=== PATIENT | male | born 1985 | race Caucasian/White ===

== ENCOUNTER → 2020-06-13 | Outpatient (BNVA) | payer SELFPAY | PROVIDERS: Visit Provider Internal Medicine ==

== ENCOUNTER 2021-04-17 12:34 | Outpatient (REF) | payer MEDICARE, MEDICAID, SELFPAY | END 2021-04-17 12:35 | disposition home or self-care (01) | LOC: HO.LNP 12:34 | PROVIDERS: Visit Provider Hospitalist | DX: Z20.822 Contact with and (suspected) exposure to COVID-19 (principal); J01.90 Acute sinusitis, unspecified | CPT/HCPCS: U0003; U0005 ==

== ENCOUNTER 2023-04-07 08:48 | Emergency (ER) | payer MEDICARE, MEDICAID, SELFPAY ==
[2023-04-07 08:52] VITALS: BP 142/96; PULSE 83; RESP 16; TEMP 36.1; O2SAT 98; BMI 32.1
--- NOTE | 2023-04-07 09:10 | ED.GENADULT ---
HPI - General Adult General Chief complaint: Allergic Reaction Stated complaint: allergic reaction Time Seen by Provider: 04/07/23 09:09 Source: patient Mode of arrival: ambulatory Limitations: no limitations History of Present Illness HPI narrative: Patient is a 37 year old assigned male at with no reported medical history presenting to the emergency department today with hives. Patient states that starting yesterday he began to break out in hives everywhere and intermittently felt a swelling sensation in his throat. Patient denies any known allergens. Patient states that he has been under an increased amount of stress. Patient denies any dizziness, lightheadedness, abdominal pain, nausea, vomiting, fever, chills, blurry vision, double vision, loss of vision, chest pain, difficulty breathing, shortness of breath, back pain, night sweats, pain with urination, increased urinary frequency, increased urinary urgency, blood in his urine or stool, syncope or a near syncopal episode, recent trauma or falls, bowel incontinence, bladder incontinence, bowel retention, bladder retention, or any other complaints at this time. Onset (ago): day(s) (2) Severity: mild Relieving factors: none Exacerbating factors: none Associated symptoms: rash Treatments prior to arrival: other (100mg Benadryl) Related Data Previous Rx's Medication Instructions Recorded amoxicillin 875 mg-potassium 1 tab PO BID #20 tabs 04/17/21 clavulanate 125 mg tablet (Augmentin) prednisone 20 mg tablet 20 mg PO .COMPLEX #18 tabs 04/17/21 prednisone 20 mg tablet 20 mg PO DAILY 7 days #7 tabs 04/07/23 Allergies Allergy/AdvReac Type Severity Reaction Status Date / Time No Known Allergies Allergy Unverified 05/08/20 15:40 Review of Systems Constitutional: Constitutional: Reports no additional constitutional complaints, Denies chills, Denies fever(s) and Denies night sweats Eyes: Eyes: Reports no additional eye complaints, Denies blurry vision, Denies change in vision, Denies diplopia, Denies eye discharge, Denies loss of vision and Denies eye pain ENT: Denies dizziness Cardiovascular: Cardiovascular: Reports no additional cardiovascular complaints, Denies chest pain, Denies lightheadedness, Denies Loss of Consciousness and Denies dyspnea Respiratory: Respiratory: Reports no additional respiratory complaints and Denies dyspnea Gastrointestinal: Gastrointestinal: Reports no additional gastrointestinal complaints, Denies abdominal pain, Denies melena, Denies hematochezia, Denies change in bowel habits and Denies change in stool character Genitourinary: Genitourinary: Reports no additional male genitourinary complaints, Denies hematuria, Denies oliguria, Denies difficulty urinating, Denies dysuria, Denies urinary frequency, Denies urinary hesitancy, Denies urinary incontinence and Denies urinary urgency Musculoskeletal: Musculoskeletal: Reports no additional musculoskeletal complaints, Denies numbness and Denies tingling Integumentary/Breasts: Skin/Breast: Reports rash Neurologic: Denies dizziness, Denies loss of vision, Denies numbness and Denies tingling Psychiatric: Psychiatric: Reports no additional psychiatric complaints Endocrine: Endocrine: Reports no additional endocrine complaints Hematologic/Lymphatic: Hematologic/Lymphatic: Reports no additional hematologic/lymphatic complaints Allergic/Immunologic: Allergic/Immunologic: Reports no additional allergic/immunologic complaints PMFSH Past Medical History Attestation statement: The following information was validated with the patient. Source: old records reviewed and nursing notes reviewed Medical History Acute sinusitis Social History Social History Advance Directives: No Physical Exam ED Vital Signs: Vital Signs - 24 hr 04/07/23 08:52 Temperature 97.0 F Pulse Rate 83 Respiratory Rate 16 Blood Pressure 142/96 H Pulse Oximetry 98 Oxygen Delivery Method Room Air BMI result Body Mass Index 32.1 Const General: cooperative, no acute distress, alert and awake Nutritional Appearance: well nourished Orientation/consciousness: patient oriented x3 Limitations: no limitations HENMT Head: Yes normal to inspection and Yes atraumatic Ears: hearing grossly normal bilaterally and external ears normal General nose exam: Normal external nose present, no nasal discharge noted and no epistaxis Face and sinus: Yes normal facial exam, No abrasion and No laceration Mouth: Normal oral and palatal mucosa present, no drooling and no muffled voice Eyes General: appearance normal, both eyes and all related structures Periorbital: periorbital findings normal Eyelids: Yes eyelids normal Conjunctivae: conjunctivae normal Pupils: Equal, round and reactive pupils present EOM: EOMs intact bilaterally Neck Neck: Yes normal visual inspection, Yes full ROM and Yes no lymphadenopathy Chest Chest palpation & inspection: normal inspection of the chest Resp Effort & Inspection: normal respiratory effort and able to speak in complete sentences GI Inspection: Yes normal to inspection Neuro General: patient oriented x3 and moves all extremities Cranial nerves: Yes Equal, round and reactive pupils present Cognition (Neuro): normal cognition Motor exam (neuro): 5/5 motor strength present throughout Sensory Exam: Normal double simultaneous stimulation for sensation Coordination: [id number] test normal Extrem Other: urticaria to bilateral upper and lower extremities General: Yes full ROM and Yes capillary refill normal Psych Appearance: grossly normal Mental Status: mental status grossly normal Affect: normal affect Attitude: cooperative Thought process: Normal thought process present Thought content: Normal thought content present Insight: Good insight present (Psych) Medications Administered Discontinued Medications Generic Name Dose Route Start Last Admin Trade Name Freq PRN Reason Stop Dose Admin Methylprednisolone Sodium Succinate 60 mg 04/07/23 09:30 04/07/23 09:50 Methylprednisolone Sod Succ 125 Mg/2 Ml Vial IM 04/07/23 09:31 60 mg ONCE ONE Administration Medical Decision Making Medical Decision Making [facility] Narrative: Patient is a 37 year old assigned male at with no reported medical history presenting to the emergency department today with hives. Patient's physical exam showed no swelling in the pharynx or posterior oropharynx. Hives were present to the bilateral upper and lower extremities. Patient's blood work was unremarkable. I explained my physical exam findings as well as all test results to the patient. I answered all questions asked by the patient. I stressed the importance of the patient taking his medication as prescribed. I stressed the importance of the patient following up with his primary care provider and an solar project engineer. I stressed the importance of the patient returning to the emergency department immediately if his symptoms were to worsen or if he were to develop any dizziness, shortness of breath, difficulty breathing, chest pain, blurry vision, loss of vision, nausea, vomiting, abdominal pain, fever, chills, back pain, or any other complaints. Patient verbalized agreement and understanding with this treatment plan and discharge. Differential Diagnosis Differential Diagnoses: The differential diagnosis associated with the presentation includes Allergic reaction Urticaria Lab Data [facility] Lab Attestation statement: I reviewed the patient's lab results. My interpretation of these studies and their corresponding values is that they are grossly normal. 04/07/23 09:51 04/07/23 09:51 Labs: Lab Results 04/07/23 04/07/23 Range/Units 09:51 09:51 WBC 6.2 (4.8-10.8) X10*3/uL RBC 5.33 (4.60-5.80) X10*6/uL Hgb 16.0 (14.0-18.0) g/dl Hct 46.0 (42.0-52.0) % MCV 86.3 (80.0-98.0) fL MCH 30.0 (27.0-33.0) pg MCHC 34.8 (31.0-36.0) g/dl RDW 12.3 (11.0-16.0) % Plt Count 266 (160-400) X10*3/uL MPV 9.6 (9.4-12.4) fL Immature Gran % (Auto) 0.3 (0.0-0.4) % Neut % (Auto) 63.3 (45-73) % Lymph % (Auto) 26.3 (20-40) % Geary % (Auto) 8.1 (2-11) % Eos % (Auto) 1.8 (0-4) % Baso % (Auto) 0.2 (0-2) % Lymph # (Auto) 1.6 (1.2-4.9) X10*3/uL Geary # (Auto) 0.5 (0.1-1.2) X10*3/uL Eos # (Auto) 0.1 (0.0-0.4) X10*3/uL Baso # (Auto) 0.0 (0.0-0.2) X10*3/uL Abs Immat Gran (auto) 0.02 (0.00-0.03) X10*3/uL Absolute Neuts (auto) 3.9 (2.0-8.3) x10*3/uL Absolute Nucleated RBC 0.000 (0.0-0.012) X10*3/uL Nucleated RBC % (auto) 0.0 (0.0-0.2) /100WBC Sodium 140 (135-145) mmol/L Potassium 4.0 (3.3-5.1) mmol/L Chloride 109 H (96-108) mmol/L Carbon Dioxide 22 (22-29) mmol/L Anion Gap 13 (12-20) BUN 12 (9-16) mg/dL Creatinine 0.98 (0.5-1.4) mg/dL Estim Creat Clear Calc 125.5 Estimated GFR > 60 Random Glucose 106 (60-115) mg/dL Calcium 10.0 (8.4-10.2) mg/dL Magnesium 2.0 (1.6-2.6) mg/dL Total Bilirubin 0.5 (0.0-1.0) mg/dL AST 22 (5-37) U/L ALT 25 (0-40) U/L Alkaline Phosphatase 83 (39-117) U/L Total Protein 7.5 (6.5-8.0) g/dL Albumin 4.4 (3.5-5.0) g/dL Discharge Plan Discharge Clinical Impression: Urticaria Patient Disposition: Home, Self-Care Instructions: Urticaria (ED) Additional Instructions: Follow up with your primary care provider and an solar project engineer. Return to the emergency department immediately if your symptoms worsen or if you develop any dizziness, shortness of breath, difficulty breathing, chest pain, blurry vision, loss of vision, nausea, vomiting, abdominal pain, fever, chills, back pain, or any other complaints. Prescriptions: New prednisone 20 mg tablet 20 mg PO DAILY 7 Days Qty: 7 0RF No Action prednisone 20 mg tablet 20 mg PO .COMPLEX Qty: 18 0RF Rx Instructions: 20 mg PO 3 p.o. daily for 3 days followed by 2 p.o. daily for 3 days followed by 1 p.o. daily for 3 days; amoxicillin-pot clavulanate [Augmentin] 875-125 mg tablet 1 tab PO BID Qty: 20 0RF Referrals: Velvet Bianchi MD [Primary Care Provider] - Lola Fernandez MD [Physician] - (Call to establish and follow up with an solar project engineer.) Stand Alone Forms: Work/School Release Interventions: ED Discharge Assessment Last Done: 04/07/23 11:12 Discharge Date/Time: 04/07/23 11:15 Print Language: Slovak
[2023-04-07] MEDS: methylPREDNISolone Sod Succ 125 MG/2 ML VIAL 60 MG IM (09:50)
[2023-04-07 09:57] LABS: MANUAL DIFF FLAG NO
[2023-04-07 09:59] LABS: Basophils Percent Auto 0.2 % (0-2); Eosinophils Absolute Auto 0.1 X10*3/uL (0.0-0.4); Eosinophils Percent Auto 1.8 % (0-4); Imm Gran Abs Auto 0.02 X10*3/uL (0.00-0.03); Imm Gran Pct Auto 0.3 % (0.0-0.4); Lymphocytes Absolute Auto 1.6 X10*3/uL (1.2-4.9); Lymphocytes Percent Auto 26.3 % (20-40); Mean Corpuscular HGB Conc 34.8 g/dl (31.0-36.0); Mean Corpuscular Volume 86.3 fL (80.0-98.0); Mean Platelet Volume 9.6 fL (9.4-12.4); Monocytes Absolute Auto 0.5 X10*3/uL (0.1-1.2); Monocytes Percent Auto 8.1 % (2-11); Neutrophils Absolute Auto 3.9 x10*3/uL (2.0-8.3); Neutrophils Percent Auto 63.3 % (45-73); Platelet Count 266 X10*3/uL (160-400); Red Blood Count 5.33 X10*6/uL (4.60-5.80); Red Cell Distribution Width 12.3 % (11.0-16.0); White Blood Count 6.2 X10*3/uL (4.8-10.8)
--- NOTE | 2023-04-07 10:09 | PC.NURSE ---
IM med given (L deltoid) as ordered. pt tolerated well. lab results pending
[2023-04-07 10:13] LABS: Alanine Aminotransferase 25 U/L (0-40); Albumin Level 4.4 g/dL (3.5-5.0); Alkaline Phosphatase 83 U/L (39-117); Anion Gap 13 (12-20); Aspartate Amino Transferase 22 U/L (5-37); Bilirubin Total 0.5 mg/dL (0.0-1.0); Blood Urea Nitrogen 12 mg/dL (9-16); Carbon Dioxide 22 mmol/L (22-29); Chloride 109 mmol/L (96-108); Creatinine Clr Calc Pharmacy 125.5; Estimated Glomerular Filt Rate > 60; Glucose Random 106 mg/dL (60-115); Sodium 140 mmol/L (135-145); Total Protein 7.5 g/dL (6.5-8.0)
--- NOTE | 2023-04-07 11:12 | PC.NURSE ---
pt cleared for discharge. discharge instructions reviewed with pt, denies trouble breathing. vss. no complaints.
[2023-04-09 01:33] LABS: A. Phagocytphilium DNA,RT-PCR NOT DETECTED (NOT DETECTED); Babesia Microti DNA, RT-PCR NOT DETECTED (NOT DETECTED); Borrelia Miyamotoi,DNA RT-PCR NOT DETECTED (NOT DETECTED); E.Chaffeensis DNA RT-PCR NOT DETECTED (NOT DETECTED); Lyme(Borrelia ssp)DNA RT-PCR NOT DETECTED (NOT DETECTED)
== END 2023-04-07 11:15 | disposition home or self-care (01) ==
PROVIDERS: Physician Assistant Medical; Emergency Provider Emergency Medicine; PCP Internal Medicine
DX: L50.9 Urticaria, unspecified (principal)
CPT/HCPCS: 36415; 80053; 83735; 85025; 87798; 87801; 96372; 99284; J2930

== ENCOUNTER 2023-04-08 09:18 | Outpatient (AMB) | payer MEDICARE, MEDICAID, SELFPAY ==
[2023-04-08 09:25] VITALS: BP 128/76; PULSE 74; TEMP 36.4; O2SAT 98; BMI 32.1
--- NOTE | 2023-04-08 09:25 | MHC.OFFWIV ---
Intake Vital Signs 04/08/23 09:25 Height 5 ft 10 in Weight 224 lb BMI 32.1 BP 128/76 Blood Pressure Location Rt brachial Position Sitting Pulse 74 Pulse Source Pulse Oximeter Temp 97.6 F Temp Source Temporal Artery Scan Pulse Oximetry (%) 98 Intake Visit Reasons: EP, Hives all over body Intake Note: pt is here for c/o hives all over body since tuesday Allergies No Known Allergies Allergy (Verified 04/08/23 10:00) Medication List - Last Reconciled 04/08/23 by Riley Pino MD alprazolam (Xanax) 0.25 mg PO DAILY prednisone 60 mg (3 x 20 mg) PO DAILY 3 days HPI EP, Hives all over body HPI Details 37-year-old male presents to the office for a sick visit. Patient is complaining of a rash all over the body for the past 2 days. He was seen in the emergency room yesterday for urticaria. Patient received an injection and prednisone. He took 1 pill of the prednisone and still is having symptoms. Patient is very anxious. [facility] Medical History Acute sinusitis Physical Exam Vital Signs: Last Vital Signs Temp 97.6 F 04/08/23 09:25 Pulse 74 04/08/23 09:25 BP 128/76 04/08/23 09:25 Pulse Ox 98 04/08/23 09:25 BMI result Body Mass Index 32.1 Const General: cooperative and healthy appearing Nutritional Appearance: well nourished Orientation/consciousness: patient oriented x3 Limitations: no limitations HEENT Head: Yes normal to inspection Eyes General: appearance normal, both eyes and all related structures Neck Neck: Yes normal visual inspection Chest Chest palpation & inspection: normal palpation of entire chest wall Resp Effort & Inspection: normal respiratory effort Skin Other: Erythematous rash all over the back, lower legs. Wheals and raised lesions present. Neuro General: patient oriented x3 Assessment & Plan Assessment & Plan (1) Urticaria: Code(s): L50.9 - Urticaria, unspecified Plan: Partly related to anxiety. A few anxiolytics prescribed. Prednisone dosage increased to 60 mg a day for three days. Medications: New alprazolam (Xanax) 0.25 mg PO DAILY 5 tabs 0RF Changed From prednisone 20 mg PO DAILY 7 days 7 tabs 0RF To prednisone 60 mg (3 x 20 mg) PO DAILY 3 days 9 tabs 0RF Coding Level of Care Code Est Pt Level 3 (55045) Diagnoses Urticaria L50.9
== END 2023-04-08 10:14 | disposition home or self-care (01) ==
PROVIDERS: Visit Provider Internal Medicine
DX: L50.9 Urticaria, unspecified (principal)
CPT/HCPCS: 99213

== ENCOUNTER 2023-10-10 14:28 | Outpatient (AMB) | payer MEDICARE, MEDICAID, SELFPAY ==
--- NOTE | 2023-10-10 14:34 | A.OFFPC_ITS ---
Vital Signs 10/10/23 14:36 Height 5 ft 10 in Weight 230 lb BMI 33.0 BP 128/76 Blood Pressure Location Lt brachial Position Sitting Pulse 82 Pulse Source Pulse Oximeter Pulse Oximetry (%) 98 Oxygen Delivery Method Room Air Intake Visit Reasons: [facility] est care Intake Note: pt is here for est establish care, patient states he has concerns about anxiety, and also his weight Rn Hemodialysis Charge Required: No Accompanied by: Self / Same As Patient Allergies No Known Allergies Allergy (Verified 10/10/23 17:47) Medication List - Last Reconciled 10/10/23 by MARCIE Stevenson No Known Home Meds Tobacco use date assessed: 10/10/23 Dental Screening Dental Screen Date: 10/10/23 Did you have a dental visit in the last 12 months?: Yes Did you have a dental problem in the last 6 months where you did not have access to dental care?: No Was dental information given to patient?: Patient has dentist HPI [facility] est care HPI Details New pt is here for a PE. Will order labs. Pt reports increased anxiety. He reports frequent anxiety attacks. He is interested in trying a medication for this. Will send buspirone 5mg bid, pt has my permission to increase to 10mg bid if needed. Denies any SI and HI. Pt reports several scattered lesions of his penis. ? skin tags vs HPV. Will refer to urology. [facility] Medical History (Updated 10/10/23 @ 15:07 by MARCIE Stevenson) Acute sinusitis Surgical History (Updated 10/10/23 @ 14:40 by Keagan Lacey CMA) No pertinent past surgical history Family History (Updated 10/10/23 @ 14:46 by Keagan Lacey CMA) Daughter Bipolar 1 disorder Schizophrenia Brother Bipolar 1 disorder Schizophrenia Father Diabetes Mother Anxiety Social History (Updated 10/10/23 @ 14:42 by Keagan Lacey CMA) Housing: House Alcohol intake: current Alcohol intake frequency: does not drink Patient Tobacco Use Status: Current everyday Tobacco user Cigarettes Per Day: 15 Years Smoked: 20 years e-Cigarette/Vaping Use: Never Used Substance Use Type: Marijuana service: No Current occupational status: unemployed Cognitive needs: No Hearing needs: No Vision needs: Yes Questionnaire PHQ-9 Over the last 2 weeks, how often have you been bothered by any of the following problems? 1. Little interest or pleasure in doing things: several days 2. Feeling down, depressed, or hopeless: several days 3. Trouble falling or staying asleep, or sleeping too much: not at all 4. Feeling tired or having little energy: more than half the days 5. Poor appetite or overeating: several days 6. Feeling bad about yourself - or that you are a failure or have let yourself or your family down: several days 7. Trouble concentrating on things, such as reading the newspaper or watching television: several days 8. Moving or speaking so slowly that other people could have noticed. Or the opposite - being so fidgety or restless that you have been moving around a lot more than usual: several days 9. Thoughts that you would be better off or of hurting yourself in some way: not at all Total score: 8 Depression Screening Interpretation: Negative Depression Screening Done: Yes 93885 - PHQ-9 Billing: Yes Source: Developed by Drs. Jake Soto, Margarette Joseph, Hardeep Marlow and colleagues, with an educational mike from [employer]. Thrive Questionnaire Date Thrive assessed: 10/10/23 I am a: Patient What is your living situation today?: I have a steady place to live Within the past 12 months, did the food you bought not last and you didn't have the money to get more?: Never true Within the past 12 months, did you worry whether your food would run out before you got money to buy more?: Never true Do you have trouble paying for medicines?: No Do you have trouble getting transportation to medical appointments?: No Do you have trouble paying your heating and electricity bill?: No Do you have trouble taking care of your child, family member or friend?: No Do you have trouble with day-to-day activities such as bathing, preparing meals, shopping, managing finances, etc.?: No Are you currently unemployed and looking for a job?: No Are you interested in more education?: No Please select the resources that you would like help with: None Currently or been in a relationship where the following occur: no concerns reported THRIVE Score: 0 AUDIT C Alcohol Use Questionnaire (AUDIT-C) 1. How often do you have a drink containing alcohol?: Never 3. How often do you have six or more drinks on one occasion?: Never Total Score: 0 Score Reviewed/Action Taken: Yes RICHMOND-7 AMB Questionnaire RICHMOND-7 Date RICHMOND - 7 assessed: 10/10/23 Feeling nervous, anxious, or on edge: 3 = Nearly every day Not being able to stop or control worryin = Nearly every day Worrying too much about different things: 3 = Nearly every day Trouble relaxin = More than half the days Being so restless that it is hard to sit still: 2 = More than half the days Becoming easily annoyed or irritable: 2 = More than half the days Feeling afraid as if something awful might happen: 2 = More than half the days Total RICHMOND-7 score (0-4 normal; 5-9 mild; 10-14 moderate; 15-21 severe): 17 Source: Developed by Drs. Jake Soto, Margarette Joseph, Hardeep Marlow and colleagues, with an educational mike from [employer]. RICHMOND-7 Assessment Billing RICHMOND-7 Assessment Tool: RICHMOND-7 Assessment 07385 Review of Systems Const Denies chills and Denies fever(s) Eyes Denies blurry vision ENT Denies vertigo, Denies dizziness and Denies sore throat Card Denies chest pain at rest, Denies chest pain with activity, Denies diaphoresis, Denies dyspnea and Denies dyspnea on exertion Resp Denies cough, Denies dyspnea, Denies dyspnea on exertion and Denies wheezing GI Denies abdominal pain, Denies melena, Denies hematochezia, Denies constipation, Denies diarrhea and Denies loose stools Denies hematuria Musc Denies numbness and Denies tingling Skin/Breast Denies lesions Neuro Denies vertigo, Denies dizziness, Denies numbness and Denies tingling Psych Denies anxiety, Denies depression, Denies homicidal ideation, Denies suicidal ideation and Denies other (substance abuse) Aller/Immun Denies wheezing Physical exam (Primary Care) Vital Signs: Last Vital Signs Pulse 82 10/10/23 14:36 BP 128/76 10/10/23 14:36 Pulse Ox 98 10/10/23 14:36 Oxygen Delivery Method Room Air 10/10/23 14:36 BMI result Body Mass Index 33.0 Tobacco/Smoking Status: Tobacco use Status Tobacco use date assessed 10/10/23 10/10/23 14:46 Patient Tobacco Use Status Current everyday Tobacco 10/10/23 14:46 e-Cigarette/Vaping Use Never Used 10/10/23 14:46 PHQ-9: PHQ-9 Score PHQ-9: Total score 8 10/10/23 15:31 Depression Screening Interpretation: Negative Thrive Assessment: Date of Thrive Assessment Date Thrive assessed 10/10/23 10/10/23 14:46 Currently or been in a relationship where the following occur: no concerns reported Const General: cooperative Nutritional Appearance: well nourished Orientation/consciousness: patient oriented x3 HENMT Head: Yes normal to inspection, Yes normocephalic and Yes atraumatic Ears: TM's normal bilaterally Eyes General: appearance normal, both eyes and all related structures Alignment and Position: alignment normal and position normal Neck Neck: Yes normal visual inspection and Yes no lymphadenopathy Thyroid: Thyroid normal Resp Effort & Inspection: normal respiratory effort Auscultation: clear to auscultation bilaterally Cardio Rate: regular rate Rhythm: regular rhythm Heart sounds: S1 normal heart sound present, S2 normal heart sound present and no murmurs GI Palpation (GI): Soft to palpation and nontender Auscultation: normal bowel sounds Male General Exam: Yes normal external exam Scrotum: scrotum normal, testes descended bilaterally and no inguinal hernias Testes: no testicular mass Skin Other: penile shaft with singular scattered ? skin tags vs HPV. Rashes: no rashes Neuro General: patient oriented x3, moves all extremities, no focal motor deficits and deep tendon reflexes 2+ bilaterally Romberg Test: Negative Psych Appearance: grossly normal Mental Status: mental status grossly normal Speech and movement: Normal speech and movement present Affect: normal affect Attitude: cooperative Thought process: Normal thought process present Thought content: Normal thought content present Insight: Good insight present (Psych) Judgement: Good judgement present (Psych) Assessment and Plan Assessment & Plan (1) Physical exam: Code(s): Z00.00 - Encounter for general adult medical examination without abnormal findings Plan: Labs ordered Plan The patient agreed to the use of a medical technologist chief for this encounter. Scribed for MARCIE Gutierrez by jose guadalupe Smith scribe, on 10/10/2023 at 15:00 EST. Orders: Orders Complete Blood Count Auto Diff Today Z00.00 - Encounter for general adult medical examination without abnormal findings Comprehensive [place]. Panel Fast Today Z00.00 - Encounter for general adult medical examination without abnormal findings TSH reflex Free T4 Today Z00.00 - Encounter for general adult medical examination without abnormal findings UA CC w/rflx Micro + Cult Today Z00.00 - Encounter for general adult medical examination without abnormal findings Lipid Panel Today Z00.00 - Encounter for general adult medical examination without abnormal findings Referrals Urology Referral N48.9 - Disorder of penis, unspecified Medications: New buspirone 5 mg PO BID 60 tabs 3RF 30 days Coding Level of Care Code New Pt Prev Care 18-39yr(71419 Diagnoses Physical exam Z00.00 Additional Codes RICHMOND-7 Assessment Billing - RICHMOND-7 Assessment Tool: RICHMOND-7 Assessment [id number] ([id number])
[2023-10-10 14:36] VITALS: BP 128/76; PULSE 82; O2SAT 98; BMI 33.0
== END 2023-10-10 15:19 | disposition home or self-care (01) ==
PROVIDERS: PCP Nurse Practitioner Family; Visit Provider Nurse Practitioner Family
DX: Z00.00 Encounter for general adult medical examination without abnormal findings (principal)
CPT/HCPCS: 99395

== ENCOUNTER 2024-02-27 10:58 | Outpatient (AMB) | payer MEDICARE, MEDICAID, SELFPAY ==
--- NOTE | 2024-02-27 11:04 | MHC.PC.OV ---
Vital Signs 02/27/24 11:05 Height 5 ft 10 in Weight 231 lb 8 oz BMI 33.2 BP 134/86 Blood Pressure Location Lt brachial Position Sitting Pulse 79 Pulse Source Pulse Oximeter Pulse Oximetry (%) 98 Oxygen Delivery Method Room Air Intake Visit Reasons: 3M F/U missed on 01/18/24 Allergies No Known Allergies Allergy (Verified 02/27/24 11:06) Tobacco use date assessed: 02/27/24 Dental Screening Dental Screen Date: 02/27/24 Did you have a dental visit in the last 12 months?: Yes Did you have a dental problem in the last 6 months where you did not have access to dental care?: No Was dental information given to patient?: Patient has dentist HPI 3M F/U missed on 01/18/24 HPI Details anxiety: tried buspirone, did not like the side effects, i felt off, like i was going to get a cold . Will try a low dose sertraline. Denies any SI and HI. [facility] Medical History Acute sinusitis Surgical History No pertinent past surgical history Family History Daughter Bipolar 1 disorder Schizophrenia Brother Bipolar 1 disorder Schizophrenia Father Diabetes Mother Anxiety Social History Housing: House Alcohol intake: current Alcohol intake frequency: does not drink Patient Tobacco Use Status: Current everyday Tobacco user Cigarettes Per Day: 15 Years Smoked: 20 years e-Cigarette/Vaping Use: Never Used Substance Use Type: Marijuana service: No Current occupational status: unemployed Cognitive needs: No Hearing needs: No Vision needs: Yes Questionnaire Thrive Questionnaire Date Thrive assessed: 10/10/23 AUDIT C Alcohol Use Questionnaire (AUDIT-C) 1. How often do you have a drink containing alcohol?: Never 3. How often do you have six or more drinks on one occasion?: Never Total Score: 0 Score Reviewed/Action Taken: Yes RICHMOND-7 AMB Questionnaire RICHMOND-7 Date RICHMOND - 7 assessed: 10/10/23 Source: Developed by Jame Galeaset B.W. Jake, Hardeep Marlow and colleagues, with an educational mike from [employer]. Review of Systems Const Reports as per HPI Physical exam (Primary Care) Vital Signs: Last Vital Signs Pulse 79 02/27/24 11:05 BP 134/86 02/27/24 11:05 Pulse Ox 98 02/27/24 11:05 Oxygen Delivery Method Room Air 02/27/24 11:05 BMI result Body Mass Index 33.2 Tobacco/Smoking Status: Tobacco use Status Tobacco use date assessed 02/27/24 02/27/24 11:07 Patient Tobacco Use Status Current everyday Tobacco 02/27/24 11:07 e-Cigarette/Vaping Use Never Used 02/27/24 11:07 Thrive Assessment: Date of Thrive Assessment Date Thrive assessed 10/10/23 02/27/24 11:07 Const General: cooperative Nutritional Appearance: obese Orientation/consciousness: patient oriented x3 Resp Effort & Inspection: normal respiratory effort Auscultation: clear to auscultation bilaterally Cardio Rate: regular rate Rhythm: regular rhythm Heart sounds: S1 normal heart sound present and S2 normal heart sound present Neuro General: patient oriented x3 Extrem Right lower extremity: no edema Left lower extremity: no edema Psych Appearance: grossly normal Mental Status: mental status grossly normal Speech and movement: Normal speech and movement present Affect: normal affect Attitude: cooperative Thought process: Normal thought process present Thought content: Normal thought content present Insight: Good insight present (Psych) Judgement: Good judgement present (Psych) Assessment and Plan Assessment & Plan (1) Anxiety: Code(s): F41.9 - Anxiety disorder, unspecified Plan: Starting low dose sertraline Plan The patient agreed to the use of a medical administrative for this encounter. Scribed for MARCIE Gutierrez by Fannie Melendez medical administrative, on 02/27/2024 at 11:30 EST. Medications: New sertraline 25 mg PO DAILY 90 tabs 0RF Coding Level of Care Code Est Pt Level 3 (17025) Diagnoses Anxiety F41.9
[2024-02-27 11:05] VITALS: BP 134/86; PULSE 79; O2SAT 98; BMI 33.2
== END 2024-02-27 11:46 | disposition home or self-care (01) ==
PROVIDERS: PCP Nurse Practitioner Family; Visit Provider Nurse Practitioner Family
DX: F41.9 Anxiety disorder, unspecified (principal)
CPT/HCPCS: 99213

== ENCOUNTER 2024-03-05 06:49 | Outpatient (REF) | payer MEDICARE, MEDICAID, SELFPAY ==
[2024-03-05 10:06] LABS: MANUAL DIFF FLAG NO
[2024-03-05 10:14] LABS: Appearance Urine Turbid; Color Urine Yellow; Glucose Urine UA Negative (Negative); Leukocyte Esterase Urine Negative (Negative); Nitrite Urine Negative (Negative); Specific Gravity - Urine 1.025 (1.005-1.025); Urine Blood Negative (Negative); Urine Ketones Negative (Negative); Urine Protein Negative (Neg-Trace)
[2024-03-05 10:15] LABS: Basophils Percent Auto 0.2 % (0-2); Eosinophils Absolute Auto 0.2 X10*3/uL (0.0-0.4); Eosinophils Percent Auto 3.5 % (0-4); Hematocrit 44.1 % (42.0-52.0); Imm Gran Abs Auto 0.02 X10*3/uL (0.00-0.03); Imm Gran Pct Auto 0.3 % (0.0-0.4); Lymphocytes Absolute Auto 2.2 X10*3/uL (1.2-4.9); Lymphocytes Percent Auto 35.2 % (20-40); Mean Corpuscular Hemoglobin 30.2 pg (27.0-33.0); Mean Corpuscular Volume 88.7 fL (80.0-98.0); Mean Platelet Volume 10.4 fL (9.4-12.4); Monocytes Absolute Auto 0.6 X10*3/uL (0.1-1.2); Monocytes Percent Auto 9.5 % (2-11); Neutrophils Absolute Auto 3.2 x10*3/uL (2.0-8.3); Neutrophils Percent Auto 51.3 % (45-73); Platelet Count 242 X10*3/uL (160-400); Red Blood Count 4.97 X10*6/uL (4.60-5.80); Red Cell Distribution Width 12.4 % (11.0-16.0); White Blood Count 6.2 X10*3/uL (4.8-10.8)
[2024-03-05 10:47] LABS: Alanine Aminotransferase 23 U/L (0-40); Albumin Level 3.9 g/dL (3.5-5.0); Alkaline Phosphatase 91 U/L (39-117); Anion Gap 11 (12-20); Aspartate Amino Transferase 27 U/L (5-37); Bilirubin Total 0.3 mg/dL (0.0-1.0); Blood Urea Nitrogen 12 mg/dL (9-16); Carbon Dioxide 23 mmol/L (22-29); Chloride 109 mmol/L (96-108); Cholesterol 144 mg/dL (<200); Estimated Glomerular Filt Rate > 60; Glucose Fasting 105 mg/dL (60-99); HDL Cholesterol 35 mg/dL (>40); LDL Cholesterol Calculated 73 mg/dL (<100); Potassium 3.9 mmol/L (3.3-5.1); Sodium 139 mmol/L (135-145); Total Protein 6.5 g/dL (6.5-8.0); Triglycerides 180 mg/dL (<150)
[2024-03-05 10:51] LABS: TSH reflex Free T4 1.81 uIU/mL (0.32-4.0)
== END 2024-03-05 06:50 | disposition home or self-care (01) ==
LOC: HO.HMGCLDS 06:49
PROVIDERS: PCP Nurse Practitioner Family; Visit Provider Nurse Practitioner Family
DX: Z00.00 Encounter for general adult medical examination without abnormal findings (principal); Z20.2 Contact with and (suspected) exposure to infections with a predominantly sexual mode of transmission
CPT/HCPCS: 36415; 80053; 80061; 81003; 84443; 85025

== ENCOUNTER 2024-04-19 11:16 | Emergency (ER) | payer MEDICARE, MEDICAID, SELFPAY ==
--- NOTE | ~2024-04-19 | XR_ITS ---
EXAMINATION: XR CHEST CLINICAL INFORMATION: Shortness of breath COMPARISON: None available. TECHNIQUE: 2 views of the chest were obtained. FINDINGS: The lungs are adequately expanded. No focal consolidation. No pleural effusions or pneumothorax. The cardiac mediastinal silhouette is within normal limits. No acute osseous abnormality. XR/XR chest 2V IMPRESSION: No acute pulmonary disease. Electronically signed by: Tyson Rodgers MD 04/19/2024 12:57 PM EDT
[2024-04-19 11:20] VITALS: BP 148/96; PULSE 121; RESP 20; TEMP 37.3; O2SAT 97; BMI 32.7
--- NOTE | 2024-04-19 11:22 | ED_ITS ---
HPI - Skin/Abscess/Foreign Bdy General Chief complaint: Allergic Reaction Stated complaint: Hives, swollen feet Time Seen by Provider: 04/19/24 11:34 Source: patient Mode of arrival: ambulatory Limitations: no limitations History of Present Illness ED Provider: Jana Tomlinson PA-C HPI narrative: Patient is a 38 year old assigned male at with no reported medical history presenting to the emergency department today with hives. Patient states that starting yesterday he began to break out in hives everywhere and intermittently felt a swelling sensation in his throat. Patient denies any known allergens. 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 Patient denies any dizziness, lightheadedness, abdominal pain, nausea, vomiting, fever, chills, blurry vision, double vision, loss of vision, chest pain, difficulty breathing, shortness of breath, back pain, night sweats, pain with urination, increased urinary frequency, increased urinary urgency, blood in his urine or stool, syncope or a near syncopal episode, recent trauma or falls, bowel incontinence, bladder incontinence, bowel retention, bladder retention, or any other complaints at this time. Relieving factors: none Exacerbating factors: none Related Data Previous Rx's ?Medication ?Instructions ?Recorded sertraline 25 mg tablet 25 mg PO DAILY #90 tabs 02/27/24 prednisone 20 mg tablet 20 mg PO DAILY 12 days #26 tabs 04/19/24 Allergies Allergy/AdvReac Type Severity Reaction Status Date / Time No Known Allergies Allergy Verified 04/19/24 11:24 Review of Systems 2 Constitutional: Constitutional: Reports no additional constitutional complaints, Denies chills, Denies fever(s) and Denies night sweats Eyes: Eyes: Reports no additional eye complaints, Denies blurry vision, Denies change in vision, Denies diplopia, Denies eye discharge, Denies loss of vision and Denies eye pain ENT: Denies dizziness Comments: intermittent swelling sensation in throat Cardiovascular: Cardiovascular: Reports no additional cardiovascular complaints, Denies chest pain, Denies lightheadedness, Denies Loss of Consciousness and Denies dyspnea Respiratory: Respiratory: Reports no additional respiratory complaints and Denies dyspnea Gastrointestinal: Gastrointestinal: Reports no additional gastrointestinal complaints, Denies abdominal pain, Denies melena, Denies hematochezia, Denies change in bowel habits and Denies change in stool character Genitourinary: Genitourinary: Reports no additional male genitourinary complaints, Denies hematuria, Denies oliguria, Denies difficulty urinating, Denies dysuria, Denies urinary frequency, Denies urinary hesitancy, Denies urinary incontinence and Denies urinary urgency Musculoskeletal: Musculoskeletal: Reports no additional musculoskeletal complaints, Denies numbness and Denies tingling Integumentary/Breasts: Comments: hives Neurologic: Denies dizziness, Denies loss of vision, Denies numbness and Denies tingling Psychiatric: Psychiatric: Reports no additional psychiatric complaints Endocrine: Endocrine: Reports no additional endocrine complaints Hematologic/Lymphatic: Hematologic/Lymphatic: Reports no additional hematologic/lymphatic complaints Allergic/Immunologic: Allergic/Immunologic: Reports no additional allergic/immunologic complaints PMFSH Past Medical History Attestation statement: The following information was validated with the patient. Source: old records reviewed and nursing notes reviewed Medical History Acute sinusitis Surgical History No pertinent past surgical history Family History Family History Daughter Bipolar 1 disorder Schizophrenia Brother Bipolar 1 disorder Schizophrenia Father Diabetes Mother Anxiety Social History Social History Housing: House Alcohol intake: current Alcohol intake frequency: does not drink Patient Tobacco Use Status: Current everyday Tobacco user Cigarettes Per Day: 15 Years Smoked: 20 years e-Cigarette/Vaping Use: Never Used Substance Use Type: Marijuana Advance Directives: No service: No Current occupational status: unemployed Cognitive needs: No Hearing needs: No Vision needs: Yes Physical Exam 2 Vital Signs: Vital Signs: Last Vital Signs Temp 98.2 F 04/19/24 14:16 Pulse 74 04/19/24 14:16 Resp 14 04/19/24 14:16 BP 125/77 04/19/24 14:16 Pulse Ox 97 04/19/24 14:16 O2 Del Method Room Air 04/19/24 14:16 BMI result Body Mass Index 32.7 Const: General: cooperative, no acute distress, alert and awake Nutritional Appearance: well nourished Orientation/consciousness: patient oriented x3 Limitations: no limitations HEENT: Head: Yes normal to inspection and Yes atraumatic Ears: hearing grossly normal bilaterally and external ears normal General nose exam: Normal external nose present, no nasal discharge noted and no epistaxis Face and sinus: Yes normal facial exam, No abrasion and No laceration Mouth: Normal oral and palatal mucosa present, no drooling and no muffled voice Eyes: General: appearance normal, both eyes and all related structures P eriorbital: periorbital findings normal Eyelids: Yes eyelids normal C onjunctivae: conjunctivae normal Pupils: Equal, round and reactive pupils present EOM: EOMs intact bilaterally Neck: Neck: Yes normal visual inspection, Yes full ROM and Yes no lymphadenopathy Chest: Chest palpation & inspection: normal inspection of the chest Resp: Effort & Inspection: normal respiratory effort and able to speak in complete sentences GI: Inspection: Yes normal to inspection Neuro: General: patient oriented x3 and moves all extremities Cranial nerves: Yes Equal, round and reactive pupils present Cognition (Neuro): n ormal cognition Extrem: Other: hives present to the bilateral upper and lower extremities General: Yes full ROM and Yes capillary refill normal Psych: Appearance: grossly normal Mental Status: mental status grossly normal Affect: normal affect Attitude: cooperative Thought process: N ormal thought process present Thought content: Normal thought content present Insight: Good insight present (Psych) Course Course Course Narrative: This is a Rapid Medical Examination (RME) performed by Dana Lambert PA-C in triage. Full HPI, ROS, assessment and treatment plan per primary provider in the Main ED. 38 yo male here for eval of diffuse body hives with associated joint pain/ swelling x24 hours. 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 no one else at home w/ similar symptoms. no soaps/lotions/detergents, no new meds or abx. + patient very anxious in triage. tachy to 120's. diffuse maculopapular rash noted to entire body, spares face/ mucous membranes/ palms/soles/ webbed spaces. no sloughing. no obvious joint swelling. airway patent. speaking in full complete sentences. Plan: labs, tick panel, ekg. Medications Administered Discontinued Medications Generic Name Dose Route Start Last Admin Trade Name [place] PRN Reason Stop Dose Admin Diphenhydramine HCl 25 mg 04/19/24 11:36 04/19/24 11:40 Diphenhydramine Hcl 50 Mg/Ml Vial IVPUSH 04/19/24 11:37 25 mg ONCE ONE Administration Famotidine 20 mg 04/19/24 11:36 04/19/24 11:41 Famotidine/Pf 20 Mg/2 Ml Vial IVPUSH 04/19/24 11:37 20 mg ONCE ONE Administration Methylprednisolone Sodium Succinate 60 mg 04/19/24 11:36 04/19/24 11:41 Methylprednisolone Sod Succ 125 Mg/2 Ml Vial IVPUSH 04/19/24 11:37 60 mg ONCE ONE Administration Medical Decision Making Medical Decision Making [facility] Narrative: Patient is a 38 year old assigned male at with no reported medical history presenting to the emergency department today after an allergic reaction. Patient's physical exam showed hives to the upper and lower extremities. Patient's blood work was unremarkable. Patient's EKG was unremarkable. Patient's chest x-ray showed no acute process. I explained my physical exam findings as well as all test results to the patient. I answered all questions asked by the patient. Patient received IV solu-medrol, benadryl, and pepcid which he stated helped his symptoms significantly. I stressed the importance of the patient taking his medication as directed (either prescribed or as the over the counter packaging recommends). I stressed the importance of the patient following up with his primary care provider and an electrical project engineer. I stressed the importance of the patient returning to the emergency department immediately if his symptoms were to worsen or if he were to develop any dizziness, shortness of breath, difficulty breathing, chest pain, blurry vision, loss of vision, nausea, vomiting, abdominal pain, fever, chills, back pain, or any other complaints. Patient verbalized agreement and understanding with this treatment plan and discharge. Differential Diagnosis Differential Diagnoses: The differential diagnosis associated with the presentation includes Allergic reaction Admission/Observation Consideration of admission/observation: Escalation of care including admission/observation considered Patient would have been admitted to the hospital had his work up had any findings where hospital admission was appropriate and his clinical presentation warranted hospital admission. Lab Data [facility] Lab Attestation statement: I reviewed the patient's lab results. My interpretation of these results are in the MDM Rationale portion of this note. 04/19/24 11:38 04/19/24 11:38 Labs: Lab Results 04/19/24 04/19/24 04/19/24 Range/Units 11:38 12:06 12:10 WBC 12.9 H (4.8-10.8) X10*3/uL RBC 5.63 (4.60-5.80) X10*6/uL Hgb 17.2 (14.0-18.0) g/dl Hct 48.6 (42.0-52.0) % MCV 86.3 (80.0-98.0) fL MCH 30.6 (27.0-33.0) pg MCHC 35.4 (31.0-36.0) g/dl RDW 12.3 (11.0-16.0) % Plt Count 297 (160-400) X10*3/uL MPV 9.6 (9.4-12.4) fL Immature Gran % (Auto) 0.5 H (0.0-0.4) % Neut % (Auto) 83.0 H (45-73) % Lymph % (Auto) 12.0 L (20-40) % Moore % (Auto) 4.1 (2-11) % Eos % (Auto) 0.3 (0-4) % Baso % (Auto) 0.1 (0-2) % Lymph # (Auto) 1.5 (1.2-4.9) X10*3/uL Moore # (Auto) 0.5 (0.1-1.2) X10*3/uL Eos # (Auto) 0.0 (0.0-0.4) X10*3/uL Baso # (Auto) 0.0 (0.0-0.2) X10*3/uL Abs Immat Gran (auto) 0.06 H (0.00-0.03) X10*3/uL Absolute Neuts (auto) 10.7 H (2.0-8.3) x10*3/uL Absolute Nucleated RBC 0.000 (0.0-0.012) X10*3/uL Nucleated RBC % (auto) 0.0 (0.0-0.2) /100WBC Sodium 137 (135-145) mmol/L Potassium 3.9 (3.3-5.1) mmol/L Chloride 105 (96-108) mmol/L Carbon Dioxide 22 (22-29) mmol/L Anion Gap 14 (12-20) BUN 14 (9-16) mg/dL Creatinine 1.01 (0.5-1.4) mg/dL Estim Creat Clear Calc 118.1 Estimated GFR > 60 Random Glucose 114 (60-115) mg/dL Calcium 10.1 D (8.4-10.2) mg/dL Magnesium 1.9 (1.6-2.6) mg/dL Total Bilirubin 1.2 H (0.0-1.0) mg/dL AST 21 (5-37) U/L ALT 27 (0-40) U/L Alkaline Phosphatase 81 (39-117) U/L Total Protein 7.5 (6.5-8.0) g/dL Albumin 4.5 (3.5-5.0) g/dL Monoscreen Negative (Negative) Influenza Type A (PCR) NEGATIVE (Negative) Influenza Type B (PCR) NEGATIVE (Negative) RSV RNA Qual (PCR) NEGATIVE (Negative) SARS-CoV-2 RNA (RT-PCR) NEGATIVE (Negative) S. pyogenes GrpA EKATERINA Negative (Negative) Independent Interpretation I performed an independent interpretation of an: EKG and Plain X-Ray Interpretation: My interpretation is in agreement with the radiologist's impression of this imaging study. - EXAMINATION: XR CHEST CLINICAL INFORMATION: Shortness of breath COMPARISON: None available. TECHNIQUE: 2 views of the chest were obtained. FINDINGS: The lungs are adequately expanded. No focal consolidation. No pleural effusions or pneumothorax. The cardiac mediastinal silhouette is within normal limits. No acute osseous abnormality. XR/XR chest 2V IMPRESSION: No acute pulmonary disease. Electronically signed by: Tyson Rodgers MD 04/19/2024 12:57 PM EDT RP Dictated By: Tyson Rodgers Signed By: Electronically signed by Tyson Rodgers 04/19/24 1257 - Vent. Rate: 096 BPM Atrial Rate: 096 BPM P-R Int: 142 ms QRS Dur: 086 ms QT Int: 324 ms P-R-T Axes: 044 014 025 degrees QTc Int: 409 ms Normal sinus rhythm Normal ECG When compared with ECG of 17-AUG-2007 17:22, Vent. rate has increased BY 34 BPM DD/ 1138 Radiology Impression Discussion of test interpretation with radiology: I have reviewed the radiologist's reading. Critical Care Time Critical Care Time Critical Care Time: Yes Total Critical Care Time: 34 Attestation: I spent 34 minutes of Critical Care Time with this patient. This does not include time spent on separately reported billable procedures. Discharge Plan Discharge Clinical Impression: Allergic reaction Patient Disposition: Home, Self-Care Instructions: General Allergic Reaction (ED), Allergy Testing (ED) Additional Instructions: Follow up with your primary care provider and an electrical project engineer. Return to the emergency department immediately if your symptoms worsen or if you develop any dizziness, shortness of breath, difficulty breathing, chest pain, blurry vision, loss of vision, nausea, vomiting, abdominal pain, fever, chills, back pain, or any other complaints. Prescriptions: New prednisone 20 mg tablet 20 mg PO DAILY 12 Days Qty: 26 0RF Rx Instructions: Take 3 tablets for 5 days THEN; Take 2 tablets for 4 days THEN; Take 1 tablet for 3 days No Action sertraline 25 mg tablet 25 mg PO DAILY Qty: 90 0RF Referrals: Walter Wilson MD [Physician] - (Call to establish and follow up with an electrical project engineer.) Romulo Sood DO [Physician] - (Call to establish and follow up with an electrical project engineer.) Montez Alexander FNP- [Primary Care Provider] - Stand Alone Forms: Work/School Release Interventions: ED Discharge Assessment Last Done: 04/19/24 14:16 Discharge Date/Time: 04/19/24 14:16 Print Language: Mohawk
--- NOTE | 2024-04-19 11:25 | ECG_ITS ---
Test Reason : TACHY/ALLERGIC REACTION Blood Pressure : / mmHG Vent. Rate : 096 BPM Atrial Rate : 096 BPM P-R Int : 142 ms QRS Dur : 086 ms QT Int : 324 ms P-R-T Axes : 044 014 025 degrees QTc Int : 409 ms Normal sinus rhythm Normal ECG When compared with ECG of 17-AUG-2007 17:22, Vent. rate has increased BY 34 BPM Referred By: Rebecca Lambert Electronically Signed By:TILA BAUER
[2024-04-19] MEDS: diphenhydrAMINE HCL 50 MG/ML VIAL 25 MG IVPUSH (11:40)
[2024-04-19] MEDS: methylPREDNISolone Sod Succ 125 MG/2 ML VIAL 60 MG IVPUSH (11:41)
[2024-04-19] MEDS: Famotidine/PF 20 MG/2 ML VIAL IVPUSH (11:41)
[2024-04-19 11:42] LABS: MANUAL DIFF FLAG NO
[2024-04-19 11:52] LABS: Basophils Percent Auto 0.1 % (0-2); Eosinophils Percent Auto 0.3 % (0-4); Hematocrit 48.6 % (42.0-52.0); Hemoglobin 17.2 g/dl (14.0-18.0); Imm Gran Abs Auto 0.06 X10*3/uL (0.00-0.03); Imm Gran Pct Auto 0.5 % (0.0-0.4); Lymphocytes Absolute Auto 1.5 X10*3/uL (1.2-4.9); Mean Corpuscular HGB Conc 35.4 g/dl (31.0-36.0); Mean Corpuscular Hemoglobin 30.6 pg (27.0-33.0); Mean Corpuscular Volume 86.3 fL (80.0-98.0); Mean Platelet Volume 9.6 fL (9.4-12.4); Monocytes Absolute Auto 0.5 X10*3/uL (0.1-1.2); Monocytes Percent Auto 4.1 % (2-11); Neutrophils Absolute Auto 10.7 x10*3/uL (2.0-8.3); Platelet Count 297 X10*3/uL (160-400); Red Blood Count 5.63 X10*6/uL (4.60-5.80); Red Cell Distribution Width 12.3 % (11.0-16.0); White Blood Count 12.9 X10*3/uL (4.8-10.8)
[2024-04-19 12:10] LABS: Alanine Aminotransferase 27 U/L (0-40); Albumin Level 4.5 g/dL (3.5-5.0); Alkaline Phosphatase 81 U/L (39-117); Anion Gap 14 (12-20); Aspartate Amino Transferase 21 U/L (5-37); Bilirubin Total 1.2 mg/dL (0.0-1.0); Blood Urea Nitrogen 14 mg/dL (9-16); Calcium 10.1 mg/dL (8.4-10.2); Carbon Dioxide 22 mmol/L (22-29); Chloride 105 mmol/L (96-108); Creatinine Clr Calc Pharmacy 118.1; Estimated Glomerular Filt Rate > 60; Glucose Random 114 mg/dL (60-115); Magnesium 1.9 mg/dL (1.6-2.6); Potassium 3.9 mmol/L (3.3-5.1); Sodium 137 mmol/L (135-145); Total Protein 7.5 g/dL (6.5-8.0)
[2024-04-19 12:29] LABS: IDNOW Serial# 6674DD1D; Strep A Nucleic Acid Negative (Negative)
[2024-04-19 12:41] LABS: Monotest Negative (Negative)
[2024-04-19 12:54] LABS: Influenza A PCR NEGATIVE (Negative); Influenza B PCR NEGATIVE (Negative); Resp Syncy Virus RNA Qual PCR NEGATIVE (Negative); SARS COV2 PCR INHOUSE NEGATIVE (Negative)
[2024-04-19 14:12] VITALS: BP 125/77; PULSE 74; RESP 14; TEMP 36.8; O2SAT 97
[2024-04-19 14:16] VITALS: BP 125/77; PULSE 74; RESP 14; TEMP 36.8; O2SAT 97
[2024-04-20 21:44] LABS: Lyme Abs Screen <0.90 index
[2024-04-23 12:09] LABS: A. Phagocytphilium DNA,RT-PCR NOT DETECTED (NOT DETECTED); Babesia Microti DNA, RT-PCR NOT DETECTED (NOT DETECTED); Borrelia Miyamotoi,DNA RT-PCR NOT DETECTED (NOT DETECTED); E.Chaffeensis DNA RT-PCR NOT DETECTED (NOT DETECTED); Lyme(Borrelia ssp)DNA RT-PCR NOT DETECTED (NOT DETECTED)
[2024-04-26 14:14] LABS: Anti Nuclear Antibody Pattern Nuclear, Speckled; Anti Nuclear Antibody Screen POSITIVE (NEGATIVE)
== END 2024-04-19 14:16 | disposition home or self-care (01) ==
PROVIDERS: Physician Assistant Medical; Emergency Provider Emergency Medicine; PCP Nurse Practitioner Family
DX: L50.0 Allergic urticaria (principal); R00.0 Tachycardia, unspecified; Z03.818 Encounter for observation for suspected exposure to other biological agents ruled out; Z79.899 Other long term (current) drug therapy
CPT/HCPCS: 0241U; 36415; 71046; 80053; 83735; 85025; 86038; 86039; 86308; 86617; 86618; 87468; 87469; 87478; 87484; 87651; 87798; 93005; 96374; 96375; 99283; 99284; J1200; J2919

== ENCOUNTER 2024-04-20 12:48 | Emergency (ER) | payer MEDICARE, MEDICAID, SELFPAY ==
[2024-04-20] VITALS (7 sets, daily range): BP systolic 122–152; BP diastolic 72–88; PULSE 58–114; RESP 16–26; TEMP 36.4–36.8; O2SAT 95–99; BMI 33.2
--- NOTE | 2024-04-20 13:05 | ED_ITS ---
HPI - Allergic Reaction General Chief complaint: Allergic Reaction Stated complaint: Allergic reaction seen yest Time Seen by Provider: 04/20/24 13:34 Related Data Previous Rx's ?Medication ?Instructions ?Recorded sertraline 25 mg tablet 25 mg PO DAILY #90 tabs 02/27/24 prednisone 20 mg tablet 20 mg PO DAILY 12 days #26 tabs 04/19/24 Allergies Allergy/AdvReac Type Severity Reaction Status Date / Time No Known Allergies Allergy Verified 04/20/24 13:05 PMFSH Past Medical History Medical History Acute sinusitis Surgical History No pertinent past surgical history Family History Family History Daughter Bipolar 1 disorder Schizophrenia Brother Bipolar 1 disorder Schizophrenia Father Diabetes Mother Anxiety Social History Social History Housing: House Alcohol intake: current Alcohol intake frequency: does not drink Patient Tobacco Use Status: Current everyday Tobacco user Cigarettes Per Day: 15 Years Smoked: 20 years Smoked in Last 30 Days: Yes e-Cigarette/Vaping Use: Never Used Use of substances other than those prescribed or required for medical reasons: Yes Substance Use Type: Marijuana Substance Use Frequency: Daily Last Used Substance: Hours (ago) Advance Directives: No Advance Directives Information Provided: No service: No Current occupational status: unemployed Cognitive needs: No Hearing needs: No Vision needs: Yes Physical Exam ED Vital Signs: Vital Signs - 24 hr 04/20/24 13:01 04/20/24 13:43 04/20/24 13:46 Temperature 97.6 F 97.9 F Pulse Rate 99 58 70 Respiratory Rate 16 20 Blood Pressure 147/88 H 149/78 H 149/78 H Pulse Oximetry 98 96 Oxygen Delivery Method Room Air Room Air 04/20/24 14:07 04/20/24 14:29 Temperature Pulse Rate 114 H 109 H Respiratory Rate 24 H 26 H Blood Pressure 148/79 H 152/72 H Pulse Oximetry 99 95 Oxygen Delivery Method Room Air Room Air BMI result Body Mass Index 33.2 Course Course Course Narrative: This is a Rapid Medical Examination (RME) performed by Dana Lambert PA-C in triage. Full HPI, ROS, assessment and treatment plan per primary provider in the Main ED. 38 yo male here for eval of diffuse pruritic body rash x2 days. [place] [facility] [place], discharged w/ prednisone taper. taking benadryl as well. reports improvement in symptoms however he still feels itchy. Plan: further eval by primary ed provider Reevaluation(s) Reevaluation #1: Please refer to Dr. Turner's complete note regarding patient's visit on 04/20/2024. Medications Administered Discontinued Medications Generic Name Dose Route Start Last Admin Trade Name Freq PRN Reason Stop Dose Admin Epinephrine 0.3 mg 04/20/24 13:38 04/20/24 13:43 Epinephrine 1 Mg/Ml Vial IM 04/20/24 13:39 0.3 mg STAT STA Administration Discharge Plan Discharge Prescriptions: No Action prednisone 20 mg tablet 20 mg PO DAILY 12 Days Qty: 26 0RF Rx Instructions: Take 3 tablets for 5 days THEN; Take 2 tablets for 4 days THEN; Take 1 tablet for 3 days sertraline 25 mg tablet 25 mg PO DAILY Qty: 90 0RF Print Language: Polish
--- NOTE | 2024-04-20 13:40 | ED_ITS ---
HPI - Allergic Reaction General Chief complaint: Allergic Reaction Stated complaint: Allergic reaction seen yest Time Seen by Provider: 04/20/24 13:34 Source: patient Mode of arrival: ambulatory Limitations: no limitations History of Present Illness HPI narrative: This is 38 years old male presented to the emergency department complaining of allergic reaction he was seen in the emergency room yesterday, patient comes today complaining of generalized itching again and generalized hives MD complaint: hives Onset (ago): hour(s) (6) Exposure: unknown Symptoms: rash and itching Severity: moderate Related Data Previous Rx's ?Medication ?Instructions ?Recorded sertraline 25 mg tablet 25 mg PO DAILY #90 tabs 02/27/24 prednisone 20 mg tablet 20 mg PO DAILY 12 days #26 tabs 04/19/24 loratadine 10 mg tablet (Claritin) 10 mg PO DAILY #10 tabs 04/20/24 Allergies Allergy/AdvReac Type Severity Reaction Status Date / Time No Known Allergies Allergy Verified 04/20/24 13:05 Review of Systems Constitutional: Constitutional: Reports no additional constitutional complaints ENT: Reports system reviewed and no additional complaints, except as documented Respiratory: Respiratory: Reports no additional respiratory complaints PMFSH Past Medical History Medical History Acute sinusitis Surgical History No pertinent past surgical history Family History Family History Daughter Bipolar 1 disorder Schizophrenia Brother Bipolar 1 disorder Schizophrenia Father Diabetes Mother Anxiety Social History Social History Housing: House Alcohol intake: current Alcohol intake frequency: does not drink Patient Tobacco Use Status: Current everyday Tobacco user Cigarettes Per Day: 15 Years Smoked: 20 years Smoked in Last 30 Days: Yes e-Cigarette/Vaping Use: Never Used Use of substances other than those prescribed or required for medical reasons: Yes Substance Use Type: Marijuana Substance Use Frequency: Daily Last Used Substance: Hours (ago) Advance Directives: No Advance Directives Information Provided: No service: No Current occupational status: unemployed Cognitive needs: No Hearing needs: No Vision needs: Yes Physical Exam ED Vital Signs: Vital Signs - 24 hr 04/20/24 13:01 04/20/24 13:43 04/20/24 13:46 Temperature 97.6 F 97.9 F Pulse Rate 99 58 70 Respiratory Rate 16 20 Blood Pressure 147/88 H 149/78 H 149/78 H Pulse Oximetry 98 96 Oxygen Delivery Method Room Air Room Air 04/20/24 14:07 04/20/24 14:29 04/20/24 15:17 Temperature 98.3 F Pulse Rate 114 H 109 H 92 Respiratory Rate 24 H 26 H 16 Blood Pressure 148/79 H 152/72 H 122/80 Pulse Oximetry 99 95 97 Oxygen Delivery Method Room Air Room Air Room Air 04/20/24 15:27 Temperature 98.3 F Pulse Rate 92 Respiratory Rate 16 Blood Pressure 122/80 Pulse Oximetry 97 Oxygen Delivery Method Room Air BMI result Body Mass Index 33.2 Const General: cooperative Nutritional Appearance: well nourished Orientation/consciousness: patient oriented x3 HENMT Head: Yes normal to inspection General nose exam: Normal external nose present Face and sinus: Yes normal facial exam Neck Neck: Yes normal visual inspection and Yes full ROM Chest Chest palpation & inspection: normal inspection of the chest Breast/axilla inspection: normal inspection of the breasts Resp Effort & Inspection: able to speak in complete sentences Auscultation: clear to auscultation bilaterally Cardio Jugular venous distension: no JVD Rate: regular rate Rhythm: regular rhythm GI Inspection: Yes normal to inspection Palpation (GI): Soft to palpation, not firm and nontender Auscultation: normal bowel sounds Skin Other: Diffuse urticaria present Lesions: no lesions Rashes: no rashes Neuro General: patient oriented x3 Course Reevaluation(s) Reevaluation #1: ON RE-EXAMINATION HE FEELS MUCH BETTER NORMAL REACHING URTICARIA BETTER. WE HAVE FEW OPTION HE IS ALREADY TAKING PREDNISONE. I THINK IT IS REASONABLE TO SEND HIM HOME ON CLARITY WHICH LAST 24 HOUR VERSUS BENADRYL HE WILL CONTINUE WITH PREDNISONE WILL FOLLOW-UP WITH HIS PRIMARY CARE PHYSICIAN. UNCLEAR THE ETIOLOGY OF THE HIVES. Time: 14:54 Medications Administered Discontinued Medications Generic Name Dose Route Start Last Admin Trade Name Freq PRN Reason Stop Dose Admin Epinephrine 0.3 mg 04/20/24 13:38 04/20/24 13:43 Epinephrine 1 Mg/Ml Vial IM 04/20/24 13:39 0.3 mg STAT STA Administration Loratadine 10 mg 04/20/24 14:52 04/20/24 15:22 Loratadine 10 Mg Tablet PO 04/20/24 14:53 10 mg ONCE ONE Administration Medical Decision Making Medical Decision Making MDM Narrative: PATIENT PRESENTED WITH HIVES AND ITCHING IS ALREADY ON PREDNISONE AND BENADRYL ,HE HAD BLOOD WORK YESTERDAY SO I DO NOT THINK WE NEED TO DO A ANY OTHER BLOOD TESTS Differential Diagnosis Differential Diagnoses: The differential diagnosis associated with the presentat ion includes IDIOPATHIC URTICARIA/ALLERGIC REACTION/VIRAL SYNDROME Admission/Observation Consideration of admission/observation: Escalation of care including admission/observation considered Discharge Plan Discharge Clinical Impression: Urticaria Patient Disposition: Home, Self-Care Instructions: Urticaria (ED) Additional Instructions: PLEASE FOLLOW-UP WITH YOUR PRIMARY CARE PHYSICIAN CONTINUE THE PREDNISONE, WE ARE GOING TO CALL A PRESCRIPTION FOR CLARITIN WHICH LAST 24 HOUR AND IS LESS SEDATING THan BENADRYL Prescriptions: New loratadine [Claritin] 10 mg tablet 10 mg PO DAILY Qty: 10 0RF No Action prednisone 20 mg tablet 20 mg PO DAILY 12 Days Qty: 26 0RF Rx Instructions: Take 3 tablets for 5 days THEN; Take 2 tablets for 4 days THEN; Take 1 tablet for 3 days sertraline 25 mg tablet 25 mg PO DAILY Qty: 90 0RF Referrals: Montez Alexander, [facility] [Primary Care Provider] - 04/23/24 Interventions: ED Discharge Assessment Last Done: 04/20/24 15:27 Discharge Date/Time: 04/20/24 15:28 Print Language: Cook Islander
[2024-04-20] MEDS: EPINEPHrine 1 MG/ML VIAL 0.3 MG IM (13:43)
--- NOTE | 2024-04-20 13:52 | PC.NURSE ---
Pt comes to ED today with c/o allergic reaction--rash and itch. Unknown origin of reaction and Pt was seen here yesterday for same scenario. VSS, A&Ox3, breaths are even and unlabored. IM Epi given per provider. Pt placed on tele monitor.
[2024-04-20] MEDS: Loratadine 10 MG TABLET PO (15:22)
== END 2024-04-20 15:28 | disposition home or self-care (01) ==
PROVIDERS: Emergency Provider Emergency Medicine; PCP Nurse Practitioner Family
DX: L50.9 Urticaria, unspecified (principal); F17.210 Nicotine dependence, cigarettes, uncomplicated
CPT/HCPCS: 96372; 99284; J0171

== ENCOUNTER 2024-04-21 09:55 | Emergency (ER) | payer MEDICARE, MEDICAID, SELFPAY ==
[2024-04-21] VITALS (7 sets, daily range): BP systolic 117–148; BP diastolic 65–96; PULSE 66–156; RESP 15–18; TEMP 36.8–37.1; O2SAT 96–99; BMI 34.0
--- NOTE | ~2024-04-21 | XR_ITS ---
EXAMINATION: XR CHEST CLINICAL INFORMATION: dyspnea COMPARISON: Chest radiograph 04/19/2024 TECHNIQUE: 2 views of the chest FINDINGS: Lines and tubes: EKG leads overlie the patient. Clear lungs. No pleural effusion. No pneumothorax. Normal cardiomediastinal silhouette. XR/XR chest 2V IMPRESSION: * Clear lungs. Electronically signed by: Danette Henry MD 04/21/2024 12:03 PM EDT
--- NOTE | 2024-04-21 09:59 | ECG_ITS ---
Test Reason : CHEST PAIN Blood Pressure : / mmHG Vent. Rate : 108 BPM Atrial Rate : 108 BPM P-R Int : 136 ms QRS Dur : 088 ms QT Int : 308 ms P-R-T Axes : 066 030 014 degrees QTc Int : 412 ms Sinus tachycardia Otherwise normal ECG When compared with ECG of 19-APR-2024 11:38, Heart rate has increased Referred By: Trinh Callahan Electronically Signed By:TILA BAUER
--- NOTE | 2024-04-21 10:00 | ED_ITS ---
HPI - General Adult General Chief complaint: Allergic Reaction Stated complaint: NAUSEA VOMITING DIFF BREATHING Time Seen by Provider: 04/21/24 09:58 Source: patient and EMS Mode of arrival: EMS Limitations: no limitations History of Present Illness ED Provider: mahad SAENZ narrative: Patient is a 38-year-old male presenting to the emergency department via EMS with complaint of nausea, vomiting and diarrhea since last night. Patient also reports ongoing hives to extremities, trunk. Patient was seen in this emergency department on 04/19 as well as 04/20, prescribed prednisone and loratadine for hives. Reports he was unable to take these medications this morning due to nausea and vomiting. Has been unable to tolerate fluids by mouth. Denies fevers. Denies recent medication changes or new medications, new soaps, new foods, other known allergens. 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 complaint: nausea, vomiting, diarrhea Onset (ago): hour(s) Associated symptoms: rash Related Data Previous Rx's ?Medication ?Instructions ?Recorded sertraline 25 mg tablet 25 mg PO DAILY #90 tabs 02/27/24 prednisone 20 mg tablet 20 mg PO DAILY 12 days #26 tabs 04/19/24 loratadine 10 mg tablet (Claritin) 10 mg PO DAILY #10 tabs 04/20/24 ondansetron 4 mg disintegrating 4 mg PO Q8H PRN nausea and 04/21/24 tablet vomiting #9 tabs Allergies Allergy/AdvReac Type Severity Reaction Status Date / Time No Known Allergies Allergy Verified 04/21/24 10:11 Review of Systems 2 Review of Systems: As per HPI. Yes all other systems are reviewed and are negative Constitutional: Constitutional: Reports as per HPI PMFSH Past Medical History Medical History Acute sinusitis Surgical History No pertinent past surgical history Family History Family History Daughter Bipolar 1 disorder Schizophrenia Brother Bipolar 1 disorder Schizophrenia Father Diabetes Mother Anxiety Social History Social History Housing: House Alcohol intake: current Alcohol intake frequency: does not drink Patient Tobacco Use Status: Current everyday Tobacco user Cigarettes Per Day: 15 Years Smoked: 20 years Smoked in Last 30 Days: Yes e-Cigarette/Vaping Use: Never Used Use of substances other than those prescribed or required for medical reasons: Yes Substance Use Type: Marijuana Advance Directives: No Advance Directives Information Provided: No Do you have a plan to hurt others: No Plan service: No Current occupational status: unemployed Cognitive needs: No Hearing needs: No Vision needs: Yes Physical Exam ED Vital Signs: Vital Signs - 24 hr 04/21/24 10:11 04/21/24 10:26 04/21/24 11:53 Temperature 98.4 F 98.4 F 98.4 F Pulse Rate 100 100 81 Respiratory Rate 15 15 18 Blood Pressure 137/88 137/88 127/82 Pulse Oximetry 99 99 98 Oxygen Delivery Method Room Air Room Air Room Air 04/21/24 14:07 Temperature 98.7 F Pulse Rate 88 Respiratory Rate 16 Blood Pressure 134/79 Pulse Oximetry 98 Oxygen Delivery Method Room Air BMI result Body Mass Index 34.0 Vital signs have been reviewed and appear to be correct. Blood pressure normal. Heart rate normal. Respiratory rate normal. Temperature normal. Oxygen saturation normal. Const General: cooperative, healthy appearing and no acute distress Orientation/consciousness: oriented to person, oriented to place, oriented to time and patient oriented x3 Limitations: no limitations HENMT Head: Yes normocephalic and Yes atraumatic Ears: external ears normal General nose exam: Normal external nose present Face and sinus: Yes face symmetric Mouth: Normal oral and palatal mucosa present, lip normal, tongue normal, oropharynx normal, moist mucous membranes and other (no oral lesions) Throat: Yes posterior oropharynx normal, Yes uvula midline and No uvular edema Eyes Pupils: Equal, round and reactive pupils present Neck Neck: Yes normal visual inspection and Yes supple Resp Effort & Inspection: normal respiratory effort and able to speak in complete sentences Auscultation: clear to auscultation bilaterally Cardio Rate: regular rate Rhythm: regular rhythm Heart sounds: S1 normal heart sound present and S2 normal heart sound present GI Palpation (GI): Soft to palpation and nontender Auscultation: normoactive bowel sounds General: Yes no CVA tenderness Back/Spine/Pelvis Back: no CVA tenderness Skin General skin exam: elasticity normal and turgor normal Rashes: rashes noted and other (erythematous, blanchable macular rash to bilat arms, legs, trunk ) Neuro General: oriented to person, oriented to place, oriented to time, patient oriented x3, moves all extremities, no focal motor deficits and CN's II-XI intact bilaterally Cranial nerves: Yes Equal, round and reactive pupils present Cognition (Neuro): normal cognition Extrem Other: no rash noted to palms/soles General: Yes full ROM, Yes no pedal edema and Yes no calf tenderness Psych Mental Status: mental status grossly normal Affect: normal affect Thought process: Normal thought process present Medications Administered Discontinued Medications Generic Name Dose Route Start Last Admin Trade Name Freq PRN Reason Stop Dose Admin Hydroxyzine HCl 25 mg 04/21/24 10:23 04/21/24 10:38 Hydroxyzine Hcl 25 Mg Tablet PO 04/21/24 10:24 25 mg ONCE ONE Administration Sodium Chloride 1,000 mls @ 999 mls/hr 04/21/24 10:45 04/21/24 12:35 Ns IV 04/21/24 11:45 Infused .Q1H1M MICHELLE Infusion Sodium Chloride 1,000 mls @ 999 mls/hr 04/21/24 14:15 04/21/24 14:25 Ns IV 04/21/24 15:15 999 mls/hr .Q1H1M MICHELLE Administration Methylprednisolone Sodium Succinate 125 mg 04/21/24 10:45 04/21/24 10:52 Methylprednisolone Sod Succ 125 Mg/2 Ml Vial IVPUSH 04/21/24 10:46 125 mg ONCE ONE Administration Ondansetron HCl 4 mg 04/21/24 10:45 04/21/24 10:50 Ondansetron Hcl 4 Mg/2 Ml Vial IVPUSH 04/21/24 10:46 4 mg ONCE ONE Administration Medical Decision Making Medical Decision Making MDM Narrative: Patient is a 38-year-old male presenting to the emergency department via EMS with complaint of nausea, vomiting and diarrhea since last night as well as rash. On exam patient is awake, A+Ox3, VS WNL, afebrile, normal neurological exam without focal deficits, physical exam findings as above. Given reported symptoms and physical exam findings, initial differential includes viral illness, covid, flu, gastroenteritis, electrolyte abnormality, dehydration, tick-borne illness. Unlikely ACS. Labs notable for leukocytosis, likely due to viral infection, mildly elevated BUN, slightly elevated bilirubin, troponin of 16.4, no delta on repeat troponin. Review of tick panel drawn at previous visit shows results are still pending. Viral panel negative. X-ray chest notable for no evidence of pneumonia. My interpretation is in agreement with the radiologist's interpretation. Symptoms improved with medication in the ED. Will send prescription for zofran. Advised patient to continue with prednisone and loratadine as prescribed. Recommended following up with sql report writer for testing as patient presented to the emergency department with similar symptoms around the same time last year. Return precautions discussed. Patient verbalized understanding of and agreement with plan. Differential Diagnosis Differential Diagnoses: The differential diagnosis associated with the presentation includes As per [facility]. Lab Data [facility] Lab Attestation statement: I reviewed the patient's lab results. As per [facility]. 04/21/24 10:14 04/21/24 10:14 Labs: Lab Results 04/21/24 04/21/24 Range/Units 10:14 13:23 WBC 16.1 H (4.8-10.8) X10*3/uL RBC 5.68 (4.60-5.80) X10*6/uL Hgb 17.6 (14.0-18.0) g/dl Hct 49.0 (42.0-52.0) % MCV 86.3 (80.0-98.0) fL MCH 31.0 (27.0-33.0) pg MCHC 35.9 (31.0-36.0) g/dl RDW 12.3 (11.0-16.0) % Plt Count 318 (160-400) X10*3/uL MPV 9.9 (9.4-12.4) fL Immature Gran % (Auto) 0.5 H (0.0-0.4) % Neut % (Auto) 89.2 H (45-73) % Lymph % (Auto) 8.6 L (20-40) % [place] % (Auto) 1.4 L (2-11) % Eos % (Auto) 0.2 (0-4) % Baso % (Auto) 0.1 (0-2) % Lymph # (Auto) 1.4 (1.2-4.9) X10*3/uL [place] # (Auto) 0.2 (0.1-1.2) X10*3/uL Eos # (Auto) 0.0 (0.0-0.4) X10*3/uL Baso # (Auto) 0.0 (0.0-0.2) X10*3/uL Abs Immat Gran (auto) 0.08 H (0.00-0.03) X10*3/uL Absolute Neuts (auto) 14.4 H (2.0-8.3) x10*3/uL Absolute Nucleated RBC 0.000 (0.0-0.012) X10*3/uL Nucleated RBC % (auto) 0.0 (0.0-0.2) /100WBC Sodium 137 (135-145) mmol/L Potassium 3.7 (3.3-5.1) mmol/L Chloride 100 (96-108) mmol/L Carbon Dioxide 23 (22-29) mmol/L Anion Gap 18 (12-20) BUN 20 H (9-16) mg/dL Creatinine 1.11 (0.5-1.4) mg/dL Estim Creat Clear Calc 109.5 Estimated GFR > 60 Random Glucose 165 H (60-115) mg/dL Calcium 10.2 (8.4-10.2) mg/dL Magnesium 1.7 (1.6-2.6) mg/dL Total Bilirubin 1.5 H (0.0-1.0) mg/dL AST 21 (5-37) U/L ALT 20 (0-40) U/L Alkaline Phosphatase 70 (39-117) U/L Troponin I High Sens 16.4 17.9 (<3.5-35.0) ng/L Total Protein 7.6 (6.5-8.0) g/dL Albumin 4.3 (3.5-5.0) g/dL Amylase 31 (28-100) U/L Lipase 8 (8-78) U/L Influenza Type A (PCR) NEGATIVE (Negative) Influenza Type B (PCR) NEGATIVE (Negative) RSV RNA Qual (PCR) NEGATIVE (Negative) SARS-CoV-2 RNA (RT-PCR) NEGATIVE (Negative) Independent Interpretation I performed an independent interpretation of an: Plain X-Ray Interpretation: No evidence of pneumonia on chest x-ray Radiology Impression Discussion of test interpretation with radiology: I have reviewed the radiologist's reading. Radiologist Impression: XR/XR chest 2V IMPRESSION: * Clear lungs. External Record Review External record reviewed: Inpatient record, Office record and Outpatient record Prescription Management I considered prescription management with: Other Discharge Plan Discharge Clinical Impression: Gastroenteritis Patient Disposition: Home, Self-Care Instructions: Urticaria (ED), Gastroenteritis (DC), Acute Nausea and Vomiting (ED), Acute Diarrhea (ED) Additional Instructions: You have been evaluated in the emergency department today for nausea, vomiting, and diarrhea. Your evaluation suggests that your symptoms are most likely due to a viral illness which will improve on it's own with rest and fluids. Remember to drink plenty of fluids at home. You are being prescribed ondansetron which you can use as per the prescription instructions for nausea. Continue taking the prednisone and loratadine that you were previously prescribed. Please follow up with your primary care provider within two days. Return to the emergency department if you experience worsening or uncontrolled pain, inability to tolerate fluids by mouth, difficulty breathing, fevers 100.4? F or greater, recurrent vomiting, or any other concerning symptoms. Prescriptions: New ondansetron 4 mg tablet,disintegrating 4 mg PO Q8H PRN (Reason: nausea and vomiting) Qty: 9 0RF No Action prednisone 20 mg tablet 20 mg PO DAILY 12 Days Qty: 26 0RF Rx Instructions: Take 3 tablets for 5 days THEN; Take 2 tablets for 4 days THEN; Take 1 tablet for 3 days loratadine [Claritin] 10 mg tablet 10 mg PO DAILY Qty: 10 0RF sertraline 25 mg tablet 25 mg PO DAILY Qty: 90 0RF Referrals: [facility] [Provider Group] Print Language: Armenian
[2024-04-21 10:23] LABS: MANUAL DIFF FLAG NO
[2024-04-21 10:24] LABS: Basophils Percent Auto 0.1 % (0-2); Eosinophils Percent Auto 0.2 % (0-4); Hemoglobin 17.6 g/dl (14.0-18.0); Imm Gran Abs Auto 0.08 X10*3/uL (0.00-0.03); Imm Gran Pct Auto 0.5 % (0.0-0.4); Lymphocytes Absolute Auto 1.4 X10*3/uL (1.2-4.9); Lymphocytes Percent Auto 8.6 % (20-40); Mean Corpuscular HGB Conc 35.9 g/dl (31.0-36.0); Mean Corpuscular Volume 86.3 fL (80.0-98.0); Mean Platelet Volume 9.9 fL (9.4-12.4); Monocytes Absolute Auto 0.2 X10*3/uL (0.1-1.2); Monocytes Percent Auto 1.4 % (2-11); Neutrophils Absolute Auto 14.4 x10*3/uL (2.0-8.3); Neutrophils Percent Auto 89.2 % (45-73); Platelet Count 318 X10*3/uL (160-400); Red Blood Count 5.68 X10*6/uL (4.60-5.80); Red Cell Distribution Width 12.3 % (11.0-16.0); White Blood Count 16.1 X10*3/uL (4.8-10.8)
--- NOTE | 2024-04-21 10:29 | PC.NURSE ---
patient presents via EMS from home with cc of allergic reaction. patient seen here multiple times for similar episode this week,patient has no known allergies, currently presenting with hives, nausea and vomiting. patient states he has been unable to keep anything down at home, states he started having some chest pain and shortness of breath at home which prompted him to call 911. patient HR slightly elevated at 106 upon arrival, per EMS placed patient on O2 for comfort and states his chest pain and shortness of breath went away, patient does endorse hx of anxiety. O2 turned off in room and patient noted to have saturation of 100% on room air. patient endorsing generalized body pain, denies fevers at home, respirations even and unlabored, no airway involvement at this time, 18g PIV placed by this RN in RAC, blood work drawn and sent, EKG completed, nasal swab completed. patient to xray at this time. awaiting provider Dennis
[2024-04-21 10:37] LABS: Amylase 31 U/L (28-100)
[2024-04-21] MEDS: hydrOXYzine HCL 25 MG TABLET PO (10:38)
[2024-04-21 10:44] LABS: Alanine Aminotransferase 20 U/L (0-40); Albumin Level 4.3 g/dL (3.5-5.0); Alkaline Phosphatase 70 U/L (39-117); Anion Gap 18 (12-20); Aspartate Amino Transferase 21 U/L (5-37); Bilirubin Total 1.5 mg/dL (0.0-1.0); Blood Urea Nitrogen 20 mg/dL (9-16); Calcium 10.2 mg/dL (8.4-10.2); Carbon Dioxide 23 mmol/L (22-29); Chloride 100 mmol/L (96-108); Creatinine Clr Calc Pharmacy 109.5; Estimated Glomerular Filt Rate > 60; Glucose Random 165 mg/dL (60-115); Lipase 8 U/L (8-78); Magnesium 1.7 mg/dL (1.6-2.6); Potassium 3.7 mmol/L (3.3-5.1); Sodium 137 mmol/L (135-145); Total Protein 7.6 g/dL (6.5-8.0)
[2024-04-21 10:46] LABS: Troponin-I High Sensitivity 16.4 ng/L (<3.5-35.0)
[2024-04-21] MEDS: ondansetron HCL 4 MG/2 ML VIAL IVPUSH (10:50)
[2024-04-21] MEDS: 0.9 % Sodium Chloride 1,000 ML 999 ML IV ×2 (10:50→14:25)
[2024-04-21] MEDS: methylPREDNISolone Sod Succ 125 MG/2 ML VIAL IVPUSH (10:52)
--- NOTE | 2024-04-21 12:16 | PC.NURSE ---
patient resting comfortably on stretcher, respirations even and unlabored, remains on surveillance system monitor at this time, offering no complaints. VSS. all safety maintained
[2024-04-21 12:46] LABS: Influenza A PCR NEGATIVE (Negative); Influenza B PCR NEGATIVE (Negative); Resp Syncy Virus RNA Qual PCR NEGATIVE (Negative); SARS COV2 PCR INHOUSE NEGATIVE (Negative)
[2024-04-21 13:57] LABS: Troponin-I High Sensitivity 17.9 ng/L (<3.5-35.0)
== END 2024-04-21 16:20 | disposition home or self-care (01) ==
PROVIDERS: Registered Nurse Emergency; Emergency Provider Emergency Medicine; PCP Nurse Practitioner Family
DX: K52.9 Noninfective gastroenteritis and colitis, unspecified (principal); L50.9 Urticaria, unspecified; Z03.818 Encounter for observation for suspected exposure to other biological agents ruled out; F17.210 Nicotine dependence, cigarettes, uncomplicated
CPT/HCPCS: 0241U; 36415; 71046; 80053; 82150; 83690; 83735; 84484; 85025; 93005; 96361; 96374; 96375; 99284; 99285; J2405; J2919

== ENCOUNTER 2024-05-28 07:33 | Outpatient (AMB) | payer MEDICARE, MEDICAID, SELFPAY ==
--- NOTE | 2024-05-28 07:05 | A.OFFPC_ITS ---
Intake Visit Reasons: 3m f/u Allergies No Known Allergies Allergy (Verified 04/21/24 10:11) Tobacco use date assessed: 02/27/24 Dental Screening Dental Screen Date: 02/27/24 HPI 3m f/u HPI Details Pt was seen in the ER on 04/21 c/o N/V/D. Labs were notable for leukocytosis, likely due to viral infection, mildly elevated BUN, slightly elevated bilirubin, troponin of 16.4, no delta on repeat troponin. Viral panel was negative. Chest XR was negative for pneumonia.Pt's symptoms improved with medication. He was d/c with zofran. Pt was also seen in the ER twice with hives. He reported shortness of breath at the time. He was given prednisone and claritin. Pt reports that he has not had hives/SOB since these episodes. Will send prednisone and epipen in case of future episodes, patient carrys benadryl with him. Will also order RAST testing and refer to pile driver operator. Denies fever, chills, and dizziness. [facility] Medical History Acute sinusitis Surgical History No pertinent past surgical history Family History Daughter Bipolar 1 disorder Schizophrenia Brother Bipolar 1 disorder Schizophrenia Father Diabetes Mother Anxiety Social History Housing: House Alcohol intake: current Alcohol intake frequency: does not drink Patient Tobacco Use Status: Current everyday Tobacco user Cigarettes Per Day: 15 Years Smoked: 20 years Packs per year/per ci.00 e-Cigarette/Vaping Use: Never Used Substance Use Type: Marijuana service: No Current occupational status: unemployed Cognitive needs: No Hearing needs: No Vision needs: Yes Questionnaire Thrive Questionnaire Date Thrive assessed: 10/10/23 AUDIT C Alcohol Use Questionnaire (AUDIT-C) 3. How often do you have six or more drinks on one occasion?: Never Total Score: 0 RICHMOND-7 AMB Questionnaire RICHMOND-7 Date RICHMOND - 7 assessed: 10/10/23 Source: Developed by Drs. Jake Soto, Margarette Joseph, Hardeep Marlow and colleagues, with an educational mike from [employer]. Review of Systems Const Reports as per HPI Physical exam (Primary Care) Tobacco/Smoking Status: Tobacco use Status Tobacco use date assessed 02/27/24 05/28/24 07:08 Patient Tobacco Use Status Current everyday Tobacco 05/28/24 07:08 e-Cigarette/Vaping Use Never Used 05/28/24 07:08 Thrive Assessment: Date of Thrive Assessment Date Thrive assessed 10/10/23 05/28/24 07:08 Const General: cooperative Orientation/consciousness: patient oriented x3 Neuro General: patient oriented x3 Psych Appearance: grossly normal Mental Status: mental status grossly normal Speech and movement: Clear speech present Affect: normal affect Attitude: cooperative Thought process: Normal thought process present Thought content: Normal thought content present Insight: Good insight present (Psych) Judgement: Good judgement present (Psych) Telehealth Telehealth Telehealth Platform: [place] Location of provider rendering services: practice address Location of patient: address on file Patient Identification confirmed using: Name, : Yes Telehealth method: video Patient verbally consented to treatment: Yes Patient verbally consented to billing insurance company: Yes Patient informed of any privacy concerns related to visit: Yes Minutes spent on Phone/Video with Pt.: 10 Coding Level of Care Code Tele Est Pt Level 3 (17988) Diagnoses Allergic reaction T78.40XA SOB (shortness of breath) R06.02 Allergy T78.40XA Assessment & Plan Assessment & Plan (1) Allergic reaction: Code(s): T78.40XA - Allergy, unspecified, initial encounter Category: Medical Plan: Send prednisone and epipen (2) SOB (shortness of breath): Code(s): R06.02 - Shortness of breath Category: Medical (3) Allergy: Code(s): T78.40XA - Allergy, unspecified, initial encounter Category: Medical Plan: RAST testing ordered Plan The patient agreed to the use of a senior medical technologist for this encounter. Scribed for MARCIE Gutierrez by Fannie Melendez senior medical technologist, on 05/28/2024 at 07:05 EST. Orders: Orders Complete Blood Count Auto Diff Today T78.40XA - Allergy, unspecified, initial encounter Rast Allergen Today R06.02 - Shortness of breath, T78.40XA - Allergy, unspecified, initial encounter Comprehensive Met. Panel Today T78.40XA - Allergy, unspecified, initial encounter TSH reflex Free T4 Today T78.40XA - Allergy, unspecified, initial encounter Referrals Allergy & Immunology Referral R06.02 - Shortness of breath, T78.40XA - Allergy, unspecified, initial encounter Medications: New epinephrine (EpiPen 2-Michael) do not exceed 12 doses per 24 hrs 0.3 mg (0.3 mL) IM Q30M PRN 2 ea 0RF anaphylaxis Refilled prednisone Take 3 tablets for 5 days THEN; Take 2 tablets for 4 days THEN; Take 1 tablet for 3 days 20 mg PO DAILY 12 days 26 tabs 0RF
== END 2024-05-28 08:21 | disposition home or self-care (01) ==
LOC: HO.HMCC 07:34
PROVIDERS: PCP Nurse Practitioner Family; Visit Provider Nurse Practitioner Family
DX: R06.02 Shortness of breath (principal); T78.40XA Allergy, unspecified, initial encounter

== ENCOUNTER → 2024-05-28 07:33 | Outpatient (BNVA) | payer MEDICARE, MEDICAID, SELFPAY | PROVIDERS: PCP Nurse Practitioner Family; Visit Provider Nurse Practitioner Family | DX: T78.40XA Allergy, unspecified, initial encounter (principal); R06.02 Shortness of breath ==

== ENCOUNTER 2024-07-14 23:24 | Emergency (ER) | payer MEDICARE, MEDICAID, SELFPAY ==
[2024-07-14 23:31] VITALS: BP 151/88; PULSE 127; RESP 20; TEMP 36.9; O2SAT 98; BMI 31.6
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
[2024-07-14] MEDS: HYDROmorphone HCl 1 MG/ML SYRINGE IVPUSH (23:43)
[2024-07-14] MEDS: Ketorolac Tromethamine 15 MG/ML VIAL IVPUSH (23:47)
[2024-07-15] MEDS: LORazepam 2 MG/ML VIAL 1 MG IVPUSH (00:04)
[2024-07-15] MEDS: Diphth,Pertus(ACell),Tet Adult 0.5 ML SYRINGE IM (00:29)
[2024-07-15 02:44] VITALS: BP 106/64; PULSE 67; RESP 14; O2SAT 97
[2024-07-15] MEDS: Bacitracin Oint 0.9 GM PACKET 3 APPL TOPICAL (02:45)
[2024-07-15] MEDS: oxyCODONE HCl Immed Release 5 MG TABLET PO (03:29)
[2024-07-15] MEDS: Acetaminophen 325 MG TABLET 975 MG PO (03:29)
[2024-07-15] MEDS: Ibuprofen 400 MG TABLET PO (03:29)
[2024-07-15 03:55] VITALS: BP 105/69; PULSE 63; RESP 16; TEMP 36.4; O2SAT 97
== END 2024-07-15 03:55 | disposition home or self-care (01) ==
PROVIDERS: Emergency Provider Emergency Medicine; PCP Nurse Practitioner Family
DX: T23.201A Burn of second degree of right hand, unspecified site, initial encounter (principal); T31.0 Burns involving less than 10% of body surface; M79.641 Pain in right hand; X08.8XXA Exposure to other specified smoke, fire and flames, initial encounter; Y93.89 Activity, other specified; Y92.098 Other place in other non-institutional residence as the place of occurrence of the external cause; Y99.8 Other external cause status; Z23 Encounter for immunization
CPT/HCPCS: 16020; 90471; 90715; 96372; 96374; 96375; 99285; J1171; J1885; J2060

== ENCOUNTER 2024-10-16 08:04 | Outpatient (AMB) | payer MEDICARE, MEDICAID, SELFPAY ==
[2024-10-16 08:07] VITALS: BP 120/70; PULSE 78; TEMP 36.7; O2SAT 97; BMI 34.7
--- NOTE | 2024-10-16 08:07 | A.OFFPC_ITS ---
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 Accompanied by: Self / Same As Patient Allergies No Known Allergies Allergy (Verified 10/16/24 08:35) Medication List - Last Reconciled 10/16/24 by NANCY Stevenson- epinephrine (EpiPen 2-Michael) 0.3 mg (0.3 mL) IM Q30M PRN ibuprofen 400 mg PO Q6H PRN loratadine (Claritin) 10 mg PO DAILY sertraline 25 mg PO DAILY Tobacco use date assessed: 10/16/24 Dental Screening Dental Screen Date: 10/16/24 Did you have a dental visit in the last 12 months?: Yes Did you have a dental problem in the last 6 months where you did not have access to dental care?: No Was dental information given to patient?: Patient has dentist HPI Annual Exam HPI Details History of Present Illness The patient is a 39-year-old male presenting for a physical exam. He has a history of tobacco use, having quit smoking approximately one month ago. There are no complaints of chest pain, shortness of breath, blood in stool, constipation, diarrhea, abdominal pain, or urinary problems. The patient denies experiencing anxiety, depression, suicidal ideation, or homicidal ideation. His medical history is notable for obesity, which has been identified during the examination. Health Maintenance Social History - Tobacco Use: The patient has a history of smoking but quit approximately one month ago. - Obesity: The patient is noted to be ob mike. Review of Systems - Respiratory: Denies chest pain, denies shortness of breath. - Gastrointestinal: Denies blood in stoo l, denies constipation, denies diarrhea, denies abdominal pain. - Genitourinary: Denies urinary problems . - Psychological: Denies anxiety, denies depression, denies suicidal ideation, denies homicidal ideation. Physical Exam General: Cooperative, healthy appearing, comfortable, no acute distress and well developed, obesity noted Orientation: Patient oriented x3 Limitations: No limitations Head: Normal to inspection Ears: Hearing grossly normal bilaterally Nose: Normal external nose present Face and sinus: Normal facial exam Eyes: Appearance normal, both eyes and all related structures Neck: Normal visual inspection and Yes full ROM Respiratory: Normal respiratory effort and able to speak in complete sentences. Clear to auscultation bilaterally Cardiovascular: Regular rate and rhythm. Normal S1 and S2 : small singular skin tags to penile shaft GI: Normal to inspection. Soft to palpation and nontender Skin: No rashes or lesions noted Neuro: Patient oriented x3 Extremities: Normal to inspection Results Plan - Address tobacco use disorder with cont inued cessation support. - Discuss weight management strategies a nd potential interventions for obesity. Discussion Notes During the visit, I discussed the importance of maintaining smoking cessation with the patient and encouraged him to implement lifestyle modifications to manage his obesity, such as dietary adjustments and increased physical activity. We reviewed the potential health benefits of addressing obesity and smoking cessation. No additional diagnostic studies were discussed or recommended during this visit. Patient Instructions - Continue to abstain from smoking and s [place] support if needed. - Focus on a balanced diet and engage in regular physical activity to work on weight management. - Monitor for any new symptoms and retur n for evaluation if necessary. [facility] Medical History Acute sinusitis Surgical History No pertinent past surgical history Family History Daughter Bipolar 1 disorder Schizophrenia Brother Bipolar 1 disorder Schizophrenia Father Diabetes Mother Anxiety Social History Housing: House Alcohol intake: current Alcohol intake frequency: does not drink Patient Tobacco Use Status: Former Tobacco user Cigarettes Per Day: 15 Years Smoked: 20 years e-Cigarette/Vaping Use: Never Used Substance Use Type: Marijuana service: No Current occupational status: unemployed Cognitive needs: No Hearing needs: No Vision needs: Yes Questionnaire PHQ-9 Over the last 2 weeks, how often have you been bothered by any of the following problems? 1. Little interest or pleasure in doing things: not at all 2. Feeling down, depressed, or hopeless: not at all 3. Trouble falling or staying asleep, or sleeping too much: more than half the days 4. Feeling tired or having little energy: several days 5. Poor appetite or overeating: several days 6. Feeling bad about yourself - or that you are a failure or have let yourself or your family down: not at all 7. Trouble concentrating on things, such as reading the newspaper or watching television: not at all 8. Moving or speaking so slowly that other people could have noticed. Or the opposite - being so fidgety or restless that you have been moving around a lot more than usual: not at all 9. Thoughts that you would be better off or of hurting yourself in some way: not at all Total score: 4 Depression Screening Interpretation: Negative Depression Screening Done: Yes 15595 - PHQ-9 Billing: Yes Source: Developed by Drs. Jake Soto, Margarette Joseph, Hardeep Marlow and colleagues, with an educational mike from [employer]. Thrive Questionnaire Date Thrive assessed: 10/16/24 I am a: Patient What is your living situation today?: I have a steady place to live Within the past 12 months, did the food you bought not last and you didn't have the money to get more?: Never true Within the past 12 months, did you worry whether your food would run out before you got money to buy more?: Never true Do you have trouble paying for medicines?: No Do you have trouble getting transportation to medical appointments?: No Do you have trouble paying your heating and electricity bill?: No Do you have trouble taking care of your child, family member or friend?: No Do you have trouble with day-to-day activities such as bathing, preparing meals, shopping, managing finances, etc.?: No Are you currently unemployed and looking for a job?: No Are you interested in more education?: No Please select the resources that you would like help with: None Currently or been in a relationship where the following occur: No concerns reported THRIVE Score: 0 AUDIT C Alcohol Use Questionnaire (AUDIT-C) 1. How often do you have a drink containing alcohol?: Never 3. How often do you have six or more drinks on one occasion?: Never Total Score: 0 Score Reviewed/Action Taken: Yes RICHMOND-7 AMB Questionnaire RICHMOND-7 Date RICHMOND - 7 assessed: 10/16/24 Feeling nervous, anxious, or on edge: 1 = Several days Not being able to stop or control worryin = Several days Worrying too much about different things: 1 = Several days Trouble relaxin = Several days Being so restless that it is hard to sit still: 1 = Several days Becoming easily annoyed or irritable: 1 = Several days Feeling afraid as if something awful might happen: 1 = Several days Total RICHMOND-7 score (0-4 normal; 5-9 mild; 10-14 moderate; 15-21 severe): 7 Source: Developed by Drs. Jake Soto, Margarette Joseph, Hardeep Marlow and colleagues, with an educational mike from [employer]. RICHMOND-7 Assessment Billing RICHMOND-7 Assessment Tool: RICHMOND-7 Assessment 88899 Physical exam (Primary Care) Vital Signs: Last Vital Signs Temp 98.0 F 10/16/24 08:07 Pulse 78 10/16/24 08:07 BP 120/70 10/16/24 08:07 Pulse Ox 97 10/16/24 08:07 Oxygen Delivery Method Room Air 10/16/24 08:07 BMI result Body Mass Index 34.7 Tobacco/Smoking Status: Tobacco use Status Tobacco use date assessed 10/16/24 10/16/24 08:10 Patient Tobacco Use Status Former Tobacco user 10/16/24 08:14 e-Cigarette/Vaping Use Never Used 10/16/24 08:10 PHQ-9: PHQ-9 Score PHQ-9: Total score 4 10/16/24 08:10 Depression Screening Interpretation: Negative Thrive Assessment: Date of Thrive Assessment Date Thrive assessed 10/16/24 10/16/24 08:10 Currently or been in a relationship where the following occur: No concerns reported Coding Level of Care Code Est Pt Prev Care 18-39y(91142) Diagnoses Physical exam Z00.00 Additional Codes RICHMOND-7 Assessment Billing - RICHMOND-7 Assessment Tool: RICHMOND-7 Assessment [id number] ([id number]) PHQ-9 - 46818 - PHQ-9 Billing: Yes ([id number]) Assessment & Plan Assessment & Plan (1) Physical exam: Code(s): Z00.00 - Encounter for general adult medical examination without abnormal findings Category: Medical Plan . Orders: Orders Complete Blood Count Auto Diff Today Z00.00 - Encounter for general adult medical examination without abnormal findings TSH reflex Free T4 Today Z00.00 - Encounter for general adult medical examination without abnormal findings Lipid Panel Today Z00.00 - Encounter for general adult medical examination without abnormal findings Comprehensive Placida. Panel Fast Today Z00.00 - Encounter for general adult medical examination without abnormal findings UA CC w/rflx Micro + Cult Today Z00.00 - Encounter for general adult medical examination without abnormal findings
--- OUTSIDE RECORDS SUMMARY | 2024-10-16 08:14 | XMS_ITS | Encounter Summary ---
Author Organization [facility] Address [address] [place] [id number] Phone Care Team Providers Care Wharf Tender Helper Name Role Phone Nan Gonsalez NP Primary Care Provider Miguel Angel mabry Encounter Details Date Type Department Care Team (Late st Contact Info) Description 04/07/2017 Conversion Encounter [facility] - [address] [address] Social History Tobacco Use Types Packs/Day Years Used Date Smoking Tobacco: Never Assessed Sex and Gender Information Value Date Recorded Sex Assigned at Not on file Legal Sex Male 4:13 PM EDT Gender Identity Not on file Sexual Orientation Not on file documented as of this encounter Plan of Treatment Not on file documented as of this encounter Visit Diagnoses Not on filedocumented in this encounter Care Teams Wharf Tender Helper Relationship Specialty Start Date End Date Nan Gonsalez NP PCP - General 04/01/17 11/09/22 documented as of this encounter
--- OUTSIDE RECORDS SUMMARY | 2024-10-16 08:14 | XMS_ITS | Clinical Summary ---
Author Organization [facility] Address [address] [place] [id number] Phone Care Team Providers Care Siding Applicator Name Role Phone Unavailable Primary Care Provider Unavailabl e Immunizations Immunization Administration Dates Next Due DTP 11/19/1998, 8,10/19/1997,1996,04/21/1992 Hep B, ped/adol 01/24/2002, 1,07/19/2000,1999 Hib (HbOC) 03/03/1989 IPV 11/19/1998, 8,07/21/1997,1991 MMR 07/19/2000,11/19/1998 Td (adult) (MBL), 2 Lf tetan us toxoid, PF, adsorbed 07/19/2000 Family History Relation Name Status Comments Father Alive Father: Diabete s mellitus Mother Alive Mother: Alive a nd well Other Family history of Sudden /[place] under age 55 Sister 1 Alive Sister: Alive a nd well, Alive and well Sister 2 Alive Sister: Alive a nd well, Alive and well Social History Tobacco Use Types Packs/Day Years Used Date Smoking Tobacco: Never Assessed Sex and Gender Information Value Date Recorded Sex Assigned at Not on file Legal Sex Male 4:13 PM EDT Gender Identity Not on file Sexual Orientation Not on file Plan of Treatment Health Maintenance Due Date Last Done Comments Varicella Vaccines (1 of 2 - 13+ 2-dose series) 08/16/2000 DTaP,Tdap,and Td Vaccines (5 - Tdap) 07/19/2010 07/19/2000, 11/19/1998, 02/18/1998, Additional history exists Influenza Vaccines (#1) 2024 COVID-19 Vaccine ( season) 2024 HIB Vaccines Completed 03/03/1989 IPV Vaccines Completed 11/19/1998, 09/23, 07/21/1997, Additional history exists MMR Vaccines Completed 07/19/2000, 11/19/1998 Hepatitis B Vaccines Completed 01/24/2002, 09/06/2000, 07/19/2000, Additional history exists HPV Vaccines Aged Out No longer eligi ble based on patient's age to complete this topic Hepatitis A Vaccines Aged Out No long er eligible based on patient's age to complete this topic Men B Vaccine Aged Out No longer elig ible based on patient's age to complete this topic Meningococcal Vaccine Aged Out No mariann elvin eligible based on patient's age to complete this topic Pneumococcal Vaccine Aged Out No long er eligible based on patient's age to complete this topic
== END 2024-10-16 08:32 | disposition home or self-care (01) ==
PROVIDERS: PCP Nurse Practitioner Family; Visit Provider Nurse Practitioner Family
DX: Z00.00 Encounter for general adult medical examination without abnormal findings (principal)

== ENCOUNTER → 2024-10-16 08:04 | Outpatient (BNVA) | payer MEDICARE, MEDICAID, SELFPAY | PROVIDERS: PCP Nurse Practitioner Family; Visit Provider Nurse Practitioner Family | DX: Z00.00 Encounter for general adult medical examination without abnormal findings (principal) | CPT/HCPCS: 96127; 99395 ==